=== PATIENT | female | born 1990 | race Caucasian/White ===

== ENCOUNTER → 2017-11-12 | Outpatient (CLI) | payer OTHER | END | disposition home or self-care (01) | LOC: C.LABSPEC 13:12 | PROVIDERS: ATTEND Obstetrics & Gynecology | DX: Z34.02 Encounter for supervision of normal first pregnancy, second trimester (principal); Z3A.00 Weeks of gestation of pregnancy not specified ==

== ENCOUNTER → 2017-11-15 | Outpatient (CLI) | payer OTHER ==
[2017-11-15 13:08] LABS: BASO % 0.1 %; BASO ABS # 0.01 K/uL (0-0.2); EOS % 1.7 %; EOS ABS # 0.14 K/uL (0-0.5); HEMATOCRIT 34.5 % (37-47); HEMOGLOBIN 11.8 g/dL (12.0-16.0); IG# 0.02 K/uL (0.00-0.02); LYMPH % 15.5 %; LYMPH ABS # 1.29 K/uL (1.2-3.4); MEAN CELL VOLUME 89.1 fL (80-100); MEAN CORPUSCULAR HEMOGLOBIN 30.5 pg (25-34); MEAN CORPUSCULAR HGB CONC 34.2 g/dl (32-36); MEAN PLATELET VOLUME 10.6 fL (7.4-10.4); MONO % 9.4 %; MONO ABS # 0.78 K/uL (0.11-0.59); NEUT % 73.1 %; NEUT ABS # 6.09 K/uL (1.4-6.5); PLATELET COUNT 212 K/uL (130-400); RED CELL DISTRIBUTION WIDTH CV 13.5 % (11.5-14.5); RED CELL DISTRIBUTION WIDTH SD 44.3 fL (36.4-46.3); WHITE BLOOD COUNT 8.33 K/uL (4.8-10.8)
== END | disposition home or self-care (01) ==
LOC: C.LAB1850 10:45
PROVIDERS: ATTEND Obstetrics & Gynecology
DX: Z34.02 Encounter for supervision of normal first pregnancy, second trimester (principal)

== ENCOUNTER → 2017-11-15 | Outpatient (CLI) | payer OTHER | END | disposition home or self-care (01) | LOC: C.PAPS 13:43 | PROVIDERS: ATTEND Obstetrics & Gynecology | DX: Z12.4 Encounter for screening for malignant neoplasm of cervix (principal) ==

== ENCOUNTER → 2018-01-25 | Outpatient (CLI) | payer OTHER ==
[2018-01-25 12:25] LABS: HEMATOCRIT 34.2 % (37-47); HEMOGLOBIN 11.7 g/dL (12.0-16.0)
== END | disposition home or self-care (01) ==
LOC: C.LAB1850 10:39
PROVIDERS: ATTEND Obstetrics & Gynecology
DX: Z34.03 Encounter for supervision of normal first pregnancy, third trimester (principal); Z3A.00 Weeks of gestation of pregnancy not specified

== ENCOUNTER → 2018-05-22 | Outpatient (CLI) | payer OTHER ==
[~2018-05-22] MED LIST: PRENTAB26 PO
[2018-05-22 17:16] LABS: BASO % 0.4 %; BASO ABS # 0.02 K/uL (0-0.2); EOS % 6.4 %; EOS ABS # 0.36 K/uL (0-0.5); HEMATOCRIT 41.9 % (37-47); HEMOGLOBIN 13.7 g/dL (12.0-16.0); LYMPH % 37.5 %; LYMPH ABS # 2.12 K/uL (1.2-3.4); MEAN CORPUSCULAR HEMOGLOBIN 29.1 pg (25-34); MEAN CORPUSCULAR HGB CONC 32.7 g/dl (32-36); MEAN PLATELET VOLUME 11.6 fL (7.4-10.4); MONO ABS # 0.62 K/uL (0.11-0.59); NEUT % 44.5 %; NEUT ABS # 2.53 K/uL (1.4-6.5); PLATELET COUNT 118 K/uL (130-400); RED CELL DISTRIBUTION WIDTH CV 13.6 % (11.5-14.5); RED CELL DISTRIBUTION WIDTH SD 44.8 fL (36.4-46.3); WHITE BLOOD COUNT 5.66 K/uL (4.8-10.8)
[2018-05-22 17:17] LABS: IG# 0.01 K/uL (0.00-0.02)
[2018-05-22 17:29] LABS: ALBUMIN 3.6 gm/dl (3.4-5.0); ALKALINE PHOSPHATASE 105 U/L (45-117); ALT/SGPT 35 U/L (12-78); AST/SGOT 24 U/L (15-37); BLOOD UREA NITROGEN 13 mg/dl (7-18); CALCIUM 8.7 mg/dl (8.5-10.1); CARBON DIOXIDE 26 mmol/L (21-32); CREATININE 0.87 mg/dl (0.60-1.20); GLUCOSE 90 mg/dl (70-99); LIPASE 177 U/L (73-393); POTASSIUM 3.9 mmol/L (3.5-5.1); SODIUM 139 mmol/L (136-145); TOTAL PROTEIN 6.9 gm/dl (6.4-8.2)
== END | disposition home or self-care (01) ==
LOC: C.LABPVFM 13:38
PROVIDERS: ATTEND Family Medicine
DX: R19.7 Diarrhea, unspecified (principal)

== ENCOUNTER → 2018-05-27 | Outpatient (CLI) | payer OTHER | END | disposition home or self-care (01) | LOC: C.LABPVFM 17:40 | PROVIDERS: ATTEND Family Medicine | DX: R19.7 Diarrhea, unspecified (principal) ==

== ENCOUNTER 2019-06-07 22:16 | Inpatient (IN) ==
[2019-06-08] MEDS ORDERED: OXYTOCIN 30 UNITS/500 ML BAG IV PRN (01:24)
[2019-06-08] MEDS ORDERED: LACTATED RINGER'S 1,000 ML IV PRN (01:24)
[2019-06-08 02:07] LABS: Hematocrit (blood only) 36.1 % (37-47); Hemoglobin 12.4 g/dL (12.0-16.0); Mean Corpuscular Hemoglobin 29.8 pg (25-34); Mean Corpuscular Volume 86.8 fL (80-100); Mean Platelet Volume 12.5 fL (7.4-10.4); Platelet Count 217 K/uL (130-400); RDW Coefficient of Variation 13.4 % (11.5-14.5); RDW Standard Deviation 42.3 fL (36.4-46.3); Red Blood Count 4.16 M/uL (4.2-5.4); White Blood Count 10.06 K/uL (4.8-10.8)
[2019-06-08 02:19] LABS: Mean Corpuscular Hgb Conc 34.3 g/dL (32-36)
--- NOTE | 2019-06-08 03:29 | Obstetrical Progress Note ---
Date of Service June 08, 2019 Subjective Observation Note 28 F P1001 at 40.3 weeks re-examined by me and found to be 4/50/-3/vertex/firm. FHT Cat 1. GBS is negative. Will ambulate and re-check for labor. Results & Data Vital Signs (Past 12 Hours) Vital Signs Temp Pulse Resp BP 06/07/19 22:44 37.3 C 18 06/07/19 22:21 83 116/68
== END 2019-06-08 04:30 | disposition home or self-care (01) | DRG 833 ==
LOC: OPB 22:16 → 4S1 22:18

== ENCOUNTER 2019-06-10 07:41 | Inpatient (IN) ==
[2019-06-10] MEDS ORDERED: OXYTOCIN 30 UNITS/500 ML BAG IV PRN ×3 (08:12→18:28)
--- NOTE | 2019-06-10 08:25 | History & Physical Report ---
Date of Service June 10, 2019 Assessment & Plan (1) Post-term , 40-42 weeks of gestation: 28 yo at 40.5 wks with prolonged latent phase, favorable cervix VS Afebrile FHR reassuring GBS negative Plan to admit, monitor, Oxytocin and AROM when able She agrees with plan All questions were answered History of Present Illness Chief Complaint: Induction of labor Primary Care Provider: Adelia Meng MD Patient is a 28 yo at 40.5 wks who is scheduled for IOL for prolonged latent labor She has been in to L&D and office x3 since last week with discomfort and irregular ctxs She was in office yesterday and her cervix was 4/ 70%/ -2, central She wanted to be scheduled for IOL today No regular ctxs/ LOF/ VB +FM No fever/ chills/ CP/ SOB/ MOSS/ Change in vision/ N&V Her has been uncomplicated GBS negative Allergies Allergy/AdvReac Type Severity Reaction Status Date / Time No Known Allergies Allergy Verified 06/07/19 22:27 Home Medications Home Medications Medication Instructions Recorded Confirmed Type PNV cmb#95-ferrous fumarate-FA 1 tab PO DAILY #0 tab 04/22/18 06/07/19 History [] Patient History Medical History History of toxoplasmosis with first - 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 Sinusitis with nasal polyps Spontaneous vaginal delivery 04/23/2018 [facility] Thrombocytopenia with first Social History Preferred Language: Finnish Communication Ability: Effective 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 Beliefs That Will Affect Care: None marital status: Current Living Situation: Spouse Current Living Situation Comment: house with and daughter Feels Safe at Home: Yes Smoking Status: Never smoker Hx Alcohol Use: No Hx Substance Use: No 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
[2019-06-10 08:28] LABS: Hematocrit (blood only) 36.5 % (37-47); Hemoglobin 12.6 g/dL (12.0-16.0); Mean Corpuscular Volume 87.3 fL (80-100); Mean Platelet Volume 11.1 fL (7.4-10.4); Platelet Count 172 K/uL (130-400); RDW Coefficient of Variation 13.4 % (11.5-14.5); Red Blood Count 4.18 M/uL (4.2-5.4); White Blood Count 9.36 K/uL (4.8-10.8)
[2019-06-10] MEDS: LACTATED RINGER'S 1,000 ML IV PRN ×2 (08:46→14:43)
[2019-06-10 08:50] LABS: Mean Corpuscular Hgb Conc 34.5 g/dL (32-36)
[2019-06-10] MEDS ORDERED: ONDANSETRON INJ 2 MG/ML 2 ML VIAL IV PRN ×2 (09:11→15:16)
[2019-06-10] MEDS ORDERED: BUTORPHANOL TARTRATE 1 MG/ML VIAL IV PRN (09:11)
--- NOTE | 2019-06-10 14:30 | Obstetrical Progress Note ---
Date of Service June 10, 2019 Subjective Patient is reevaluated She feels ctxs and getting more painful Denies pain meds VE; 5/ 80%/ -1, bulging tight bag, AROM'ed clear fluid FHR categ I [place] ctxs q 1-2 min Plan to half pitocin to 4 Continue to monitor Results & Data Vital Signs (Past 12 Hours) Vital Signs Temp Pulse Resp BP 06/10/19 14:16 64 111/64 06/10/19 13:20 72 106/58 L 06/10/19 11:26 66 97/53 L 06/10/19 09:45 65 99/55 L 06/10/19 07:51 36.6 C 20 06/10/19 07:50 78 109/60
[2019-06-10] MEDS ORDERED: fentaNYL citrate 100 MCG/2 ML VIAL ONE (14:48)
[2019-06-10] MEDS ORDERED: ePHEDrine sulfate 50 MG/ML AMP ONE (14:48)
[2019-06-10] MEDS ORDERED: BUPIVACAINE 0.25% 30 ML VIAL ONE (14:48)
[2019-06-10] MEDS ORDERED: fentaNYL 2MCG/ML ROPIV 1.25MG/ML 100 ML BAG EPI ONE (14:49)
--- NOTE | 2019-06-10 14:56 | Anesthesiology Consultation ---
Date of Service June 10, 2019 Assessment & Plan (1) Encounter for pre-operative examination: Chart Review Chart Review: Acceptable Risk for Labor Epidural History Height/Weight Height: 5 ft 4 in Weight: 97.522 kg Allergies Allergy/AdvReac Type Severity Reaction Status Date / Time No Known Allergies Allergy Verified 06/07/19 22:27 Medications Active Medications Generic Name Dose Route Start Last Admin Trade Name Freq PRN Reason Stop Dose Admin Lactated Ringer's 1,000 mls @ 150 mls/hr 06/10/19 08:12 06/10/19 14:43 Lr IV 06/12/19 08:11 999 mls/hr .[id number] PRN Administration L&D Protocol Protocol Oxytocin 30 units in 500 mls @ 4 mls/hr 06/10/19 08:14 06/10/19 14:17 Pitocin IV 06/12/19 08:13 0.24 units/hr .Q24H PRN 4 mls/hr Labor Induction/Augmentation Titration Protocol 0.24 UNITS/HR Past Medical History Medical History 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
[2019-06-10] MEDS ORDERED: NALOXONE HCL 1 MG in SODIUM CHLORIDE 0.9% 1000ML 1,000 ML IV PRN (15:16)
[2019-06-10] MEDS ORDERED: NALOXONE HCL 0.4 MG/1 ML VIAL/CARP IV PRN (15:16)
[2019-06-10] MEDS ORDERED: fentaNYL 2MCG/ML ROPIV 1.25MG/ML 100 ML BAG EPI PRN (15:16)
[2019-06-10] MEDS ORDERED: ePHEDrine sulfate 50 MG/ML AMP IV PRN (15:16)
[2019-06-10] MEDS ORDERED: DIPHTHERIA/TETANUS/PERTUSSIS 0.5 ML SYR/VIAL IM ONE (18:28)
[2019-06-10] MEDS ORDERED: HYDROCORTISONE ACETATE 25 MG SUPP PR PRN (18:28)
[2019-06-10] MEDS ORDERED: BENZOCAINE 20% AER SPR 82.5 GM CAN EXT PRN (18:28)
[2019-06-10] MEDS ORDERED: SUPERCREAM 0.870% 15 GM JAR EXT PRN (18:28)
[2019-06-10] MEDS ORDERED: MEASLES, MUMPS & RUBELLA VIRUS VIAL SQ ONE (18:28)
[2019-06-10] MEDS ORDERED: BISACODYL 10 MG SUPP PR PRN (18:28)
[2019-06-10] MEDS ORDERED: ACETAMINOPHEN 325 MG TAB PO PRN (18:28)
--- NOTE | 2019-06-10 20:27 | Delivery Summary ---
DATE OF OPERATION: 06/10/2019 DATE OF DELIVERY: 06/10/2019 TIME OF DELIVERY OF BABY: 18:14 p.m. DETAILS OF DELIVERY: The patient was found to be fully dilated and desired to push. She pushed through 3 contractions and delivered the head and then turtle sign was noted over the perineum. Nurses were noted of shoulder dystocia. The patient's bed was lowered down with the Eduardo maneuver, hyperextension of the legs and suprapubic pressure, unable to deliver the anterior shoulder. There was a nuchal cord around the neck x2 and then posterior shoulder/arm, left, was easily reachable by my right hand. The posterior left arm and shoulder were delivered and then anterior shoulder and the body delivered without difficulty within less than a minute. The nuchal cord was reduced and cord was clamped x2 and cut. The baby was handed to the waiting pediatric team. Cord blood was obtained. The perineum were checked for lacerations. There was a first degree small laceration at the posterior fourchette. It was repaired with 2-0 Vicryl. Excellent hemostasis was achieved. Rest of the vagina and perineum were intact. Placenta was found to be delivered in the vagina, delivered spontaneous as intact and complete. Uterus was explored, found to be empty. Fundus was firm. EBL was 200 mL. Mom and baby tolerated the procedure well. Sponge, lap and needle counts were counted as correct x2. Baby was a viable male , Apgars 8/9, weight is 3983 gr. No complications happened and I was present during whole procedure. I attest to the content of the Intraoperative Record and any orders documented therein. Any exceptions are noted below. MTDD
--- NOTE | 2019-06-10 20:30 | Anesthesia Procedure Note ---
Date of Service June 10, 2019 Anesthesia Post Epidural Note Vital Signs Vital Signs: Temp Pulse Resp BP Pulse Ox 37.1 C 69 18 94/57 L 99 06/10/19 19:28 06/10/19 20:28 06/10/19 19:28 06/10/19 20:28 06/10/19 18:18 Notes Mental Status: alert / awake / arousable and participated in evaluation Nausea / Vomiting: adequately controlled Pain: adequately controlled Airway Patency, RR, SpO2: stable & adequate BP & HR: stable & adequate Hydration State: stable & adequate Neuraxial Anesthesia: was administered and sensory block is resolving Anesthetic Complications: no major complications apparent Epidural: Removed without complications and With tip intact
[2019-06-10] MEDS: IBUPROFEN 600 MG TAB PO PRN (21:22)
[2019-06-10] MEDS: DOCUSATE SODIUM 100 MG CAP PO SCH (21:22)
[2019-06-11] MEDS: IBUPROFEN 600 MG TAB PO PRN ×3 (02:41→12:10)
[2019-06-11 06:35] LABS: Hematocrit (blood only) 33.7 % (37-47); Hemoglobin 11.2 g/dL (12.0-16.0); Mean Corpuscular Hgb Conc 33.2 g/dL (32-36); Mean Corpuscular Volume 87.5 fL (80-100); Mean Platelet Volume 11.5 fL (7.4-10.4); Platelet Count 159 K/uL (130-400); RDW Coefficient of Variation 13.5 % (11.5-14.5); RDW Standard Deviation 43.4 fL (36.4-46.3); Red Blood Count 3.85 M/uL (4.2-5.4); White Blood Count 13.21 K/uL (4.8-10.8)
--- NOTE | 2019-06-11 08:44 | Obstetrical Progress Note ---
Date of Service June 11, 2019 Physical Exam Physical Exam: abdomen soft and non tender no calf tenderness vaginal bleeding scant o moderate hgb 11.2 ambulating well Results & Data Vital Signs (Past 12 Hours) Vital Signs Temp Pulse Resp BP 06/11/19 02:30 36.7 C 71 18 104/65 06/10/19 22:50 36.7 C 71 18 110/69 06/10/19 21:10 36.7 C 76 18 107/67
[2019-06-11] MEDS: FERROUS SULFATE 325 MG TAB PO SCH (09:38)
[2019-06-11] MEDS: PRENATAL VITAMIN 1 TAB PO SCH (09:38)
[2019-06-11] MEDS: DOCUSATE SODIUM 100 MG CAP PO SCH ×2 (09:38→20:58)
[2019-06-11] MEDS ORDERED: BISACODYL 5 MG TABEC PO SCH (20:00)
[2019-06-12 07:19] LABS: Hematocrit (blood only) 34.9 % (37-47); Hemoglobin 11.6 g/dL (12.0-16.0)
--- NOTE | 2019-06-12 10:19 | Obstetrical Progress Note ---
Date of Service June 12, 2019 Subjective doing well ambulating and tolerating diet well Physical Exam Constitutional: WD/WN, vitals as above comfortable abdomen soft fundus firm no edema neg Jimmy's Results & Data Vital Signs (Past 12 Hours) Vital Signs Temp Pulse Resp BP Pulse Ox 06/12/19 00:15 37.4 C 65 16 107/67 96
[2019-06-12] MEDS: PRENATAL VITAMIN 1 TAB PO SCH (10:50)
[2019-06-12] MEDS: FERROUS SULFATE 325 MG TAB PO SCH (10:50)
[2019-06-12] MEDS: DOCUSATE SODIUM 100 MG CAP PO SCH (13:43)
== END 2019-06-12 20:00 | disposition home or self-care (01) | DRG 807 ==
LOC: 4S1 07:41 → 4S2 20:57

== ENCOUNTER 2020-11-28 18:30 | Inpatient (IN) ==
[2020-11-28] MEDS ORDERED: LACTATED RINGER'S 1,000 ML IV PRN (19:24)
[2020-11-28] MEDS ORDERED: OXYTOCIN 30 UNITS/500 ML BAG IV PRN ×2 (19:24→22:21)
[2020-11-28 19:41] LABS: Hematocrit (blood only) 37.9 % (37-47); Hemoglobin 12.9 g/dL (12.0-16.0); Mean Corpuscular Hemoglobin 30.1 pg (25-34); Mean Corpuscular Volume 88.3 fL (80-100); Mean Platelet Volume 11.5 fL (7.4-10.4); Platelet Count 187 K/uL (130-400); RDW Coefficient of Variation 13.5 % (11.5-14.5); RDW Standard Deviation 43.9 fL (36.4-46.3); Red Blood Count 4.29 M/uL (4.2-5.4); White Blood Count 13.32 K/uL (4.8-10.8)
--- NOTE | 2020-11-28 20:32 | Obstetrical Progress Note ---
Date of Service November 28, 2020 Assessment & Plan Admission and Anticipated Discharge Date Admission Date: November 28, 2020 Subjective Admit Note 29 F P2012 at 38.1 weeks admitted in labor. FHT Cat 1. GBS is negative. Covid is negative. Cervix 6/100/0/anterior/intact. AROM with clear fluid. FHT Cat 1. Anticipate normal delivery. Results & Data ([facility]) Vital Signs (Past 12 Hours) Vital Signs Temp Pulse Resp BP 11/28/20 18:58 36.7 C 18 11/28/20 18:53 36.7 C 18 11/28/20 18:41 97 H 110/67
--- NOTE | 2020-11-28 22:20 | Delivery Summary ---
Vaginal Delivery Summary Date of Service November 28, 2020 Vaginal Delivery Summary Delivery Note live female JESUS over intact perineum with delayed cord clamping. Apgars 8/9 weight pending. Cord blood obtained followed by spontaneous delivery of intact placenta. No tears. EBL 200 ml. Final sponge and instrument count are correct. Mom and baby stable.
[2020-11-28] MEDS ORDERED: bisacodyL 10 MG SUPP PR PRN (22:21)
[2020-11-28] MEDS ORDERED: HYDROCORTISONE ACETATE 25 MG SUPP PR PRN (22:21)
[2020-11-28] MEDS ORDERED: DIPHTHERIA/TETANUS/PERTUSSIS 0.5 ML SYR/VIAL IM ONE (22:21)
[2020-11-28] MEDS ORDERED: SUPERCREAM 0.870% 15 GM JAR EXT PRN (22:21)
[2020-11-28] MEDS ORDERED: BENZOCAINE 20% AER SPR 82.5 GM CAN EXT PRN (22:21)
[2020-11-28] MEDS ORDERED: ACETAMINOPHEN 325 MG TAB PO PRN (22:21)
[2020-11-29] MEDS: IBUPROFEN 600 MG TAB PO PRN ×3 (01:55→16:33)
[2020-11-29 06:25] LABS: Hematocrit (blood only) 34.1 % (37-47); Hemoglobin 11.4 g/dL (12.0-16.0); Mean Corpuscular Hemoglobin 29.5 pg (25-34); Mean Corpuscular Hgb Conc 33.4 g/dL (32-36); Mean Corpuscular Volume 88.3 fL (80-100); Mean Platelet Volume 11.3 fL (7.4-10.4); Platelet Count 173 K/uL (130-400); RDW Coefficient of Variation 13.6 % (11.5-14.5); RDW Standard Deviation 43.7 fL (36.4-46.3); Red Blood Count 3.86 M/uL (4.2-5.4); White Blood Count 16.52 K/uL (4.8-10.8)
[2020-11-29] MEDS: PRENATAL VITAMIN 1 TAB PO SCH (08:13)
[2020-11-29] MEDS: DOCUSATE SODIUM 100 MG CAP PO SCH ×2 (08:13→21:03)
[2020-11-29] MEDS: FERROUS SULFATE 325 MG TAB PO SCH (08:13)
[2020-11-29] MEDS ORDERED: NON-FORMULARY MEDICATION (Pnv Cmb#95-Ferrous Fumarate-Fa [Prenatal] 28 mg iron- 800 mcg Ta PO SCH (09:00)
--- NOTE | 2020-11-29 10:10 | Obstetrical Progress Note ---
Date of Service November 29, 2020 Assessment & Plan Admission and Anticipated Discharge Date Admission Date: November 28, 2020 Subjective Patient is seen and examined. She feels well, no complaints. Ambulating without dizziness Voiding without difficulty Tolerating regular diet with out N&V Bleeding is minimal No fever/ chills/ CP/ SOB/ N&V/ Leg pain Breast feeding without problems Lab Results 11/28/20 11/28/20 11/28/20 Range/Units 19:25 19:25 19:32 WBC 13.32 H (4.8-10.8) K/uL RBC 4.29 (4.2-5.4) M/uL Hgb 12.9 (12.0-16.0) g/dL Hct 37.9 (37-47) % MCV 88.3 (80-100) fL MCH 30.1 (25-34) pg MCHC 34.0 (32-36) g/dL RDW Std Deviation 43.9 (36.4-46.3) fL RDW Coeff of Fiorella 13.5 (11.5-14.5) % Plt Count 187 (130-400) K/uL MPV 11.5 H (7.4-10.4) fL COVID-19 Eval Order Covid19 IDNow [facility] SARS-CoV-2, RNA, NAAT NEGATIVE (NEGATIVE) 11/29/20 Range/Units 06:07 WBC 16.52 H (4.8-10.8) K/uL RBC 3.86 L (4.2-5.4) M/uL Hgb 11.4 L (12.0-16.0) g/dL Hct 34.1 L (37-47) % MCV 88.3 (80-100) fL MCH 29.5 (25-34) pg MCHC 33.4 (32-36) g/dL RDW Std Deviation 43.7 (36.4-46.3) fL RDW Coeff of Fiorella 13.6 (11.5-14.5) % Plt Count 173 (130-400) K/uL MPV 11.3 H (7.4-10.4) fL COVID-19 Eval Order SARS-CoV-2, RNA, NAAT (NEGATIVE) Vital Signs Temp Pulse Pulse Resp BP BP Pulse Ox 11/29/20 07:55 36.5 C 80 16 100/64 98 11/29/20 03:45 36.6 C 86 18 106/68 98 11/29/20 00:10 36.5 C 89 18 103/65 97 11/28/20 23:34 36.8 C 89 18 110/56 L 11/28/20 23:26 88 110/59 L 11/28/20 23:12 83 16 121/58 L 11/28/20 23:11 169 H 112/66 11/28/20 22:56 83 18 110/58 L 11/28/20 22:41 90 18 111/52 L 11/28/20 22:31 91 H 16 124/56 L 11/28/20 22:11 36.7 C 83 18 115/58 L PE: General: Alert, orientedx3, NAD Abd: soft, NT, fundus firm, below Umbilicus Perineum intact, Lochia rubra minimal Ext; NT, no edema AP: 29 yo s/p , ppd# 1 VSS Afebrile doing well CBC in am Continue routine care All questions were answered D/C home in am Results & Data ([facility]) Vital Signs (Past 12 Hours) Vital Signs Temp Pulse Pulse Resp BP BP Pulse Ox 11/29/20 07:55 36.5 C 80 16 100/64 98 11/29/20 03:45 36.6 C 86 18 106/68 98 11/29/20 00:10 36.5 C 89 18 103/65 97 11/28/20 23:34 36.8 C 89 18 110/56 L 11/28/20 23:26 88 110/59 L 11/28/20 23:12 83 16 121/58 L 11/28/20 23:11 169 H 112/66 11/28/20 22:56 83 18 110/58 L 11/28/20 22:41 90 18 111/52 L 11/28/20 22:31 91 H 16 124/56 L 11/28/20 22:11 36.7 C 83 18 115/58 L
[2020-11-29] MEDS ORDERED: bisacodyL 5 MG TABEC PO SCH (20:00)
[2020-11-30] MEDS: IBUPROFEN 600 MG TAB PO PRN ×2 (03:26→09:33)
[2020-11-30 06:30] LABS: Basophils # (auto) 0.02 K/uL (0-0.2); Basophils % (auto) 0.2 %; Eosinophils # (auto) 0.45 K/uL (0-0.5); Eosinophils % (auto) 3.8 %; Hemoglobin 11.6 g/dL (12.0-16.0); Immature Granulocytes # (auto) 0.11 K/uL (0.00-0.02); Immature Granulocytes % (auto) 0.9 %; Lymphocytes # (auto) 2.97 K/uL (1.2-3.4); Lymphocytes % (auto) 25.1 %; Mean Corpuscular Hemoglobin 29.7 pg (25-34); Mean Corpuscular Hgb Conc 33.1 g/dL (32-36); Mean Corpuscular Volume 89.5 fL (80-100); Mean Platelet Volume 11.1 fL (7.4-10.4); Monocytes # (auto) 1.02 K/uL (0.11-0.59); Monocytes % (auto) 8.6 %; Neutrophils # (auto) 7.27 K/uL (1.4-6.5); Neutrophils % (auto) 61.4 %; Platelet Count 180 K/uL (130-400); RDW Coefficient of Variation 13.8 % (11.5-14.5); RDW Standard Deviation 44.9 fL (36.4-46.3); Red Blood Count 3.91 M/uL (4.2-5.4); White Blood Count 11.84 K/uL (4.8-10.8)
--- NOTE | 2020-11-30 07:44 | Obstetrical Progress Note ---
Date of Service November 30, 2020 Assessment & Plan Admission and Anticipated Discharge Date Admission Date: November 28, 2020 Physical Exam Physical Exam: PPD#2 stable no complaints tolerating diet out of bed passing gas Constitutional: WD/WN, vitals as above well developed and comfortable abdomen soft and non-tender fundus firm no edema neg Jimmy's for d/c today Results & Data ([facility]) Vital Signs (Past 12 Hours) Vital Signs Temp Pulse Resp BP Pulse Ox 11/29/20 23:25 36.6 C 91 H 17 112/73 97 11/29/20 20:50 36.4 C L 86 18 114/75 Laboratory Results 11/28/20 11/28/20 11/28/20 19:25 19:25 19:32 WBC 13.32 H RBC 4.29 Hgb 12.9 Hct 37.9 MCV 88.3 MCH 30.1 MCHC 34.0 RDW Std Deviation 43.9 RDW Coeff of Fiorella 13.5 Plt Count 187 MPV 11.5 H Immature Gran % (Auto) Neut % (Auto) Lymph % (Auto) [place] % (Auto) Eos % (Auto) Baso % (Auto) Neut # (Auto) Lymph # (Auto) [place] # (Auto) Eos # (Auto) Baso # (Auto) Immature Gran # (Auto) COVID-19 Eval Order Covid19 [facility]Now [facility] SARS-CoV-2, RNA, NAAT NEGATIVE 11/29/20 11/30/20 06:07 06:03 WBC 16.52 H 11.84 H RBC 3.86 L 3.91 L Hgb 11.4 L 11.6 L Hct 34.1 L 35.0 L MCV 88.3 89.5 MCH 29.5 29.7 MCHC 33.4 33.1 RDW Std Deviation 43.7 44.9 RDW Coeff of Fiorella 13.6 13.8 Plt Count 173 180 MPV 11.3 H 11.1 H Immature Gran % (Auto) 0.9 Neut % (Auto) 61.4 Lymph % (Auto) 25.1 [place] % (Auto) 8.6 Eos % (Auto) 3.8 Baso % (Auto) 0.2 Neut # (Auto) 7.27 H Lymph # (Auto) 2.97 [place] # (Auto) 1.02 H Eos # (Auto) 0.45 Baso # (Auto) 0.02 Immature Gran # (Auto) 0.11 H COVID-19 Eval Order SARS-CoV-2, RNA, NAAT
[2020-11-30] MEDS: DOCUSATE SODIUM 100 MG CAP PO SCH (09:33)
[2020-11-30] MEDS: FERROUS SULFATE 325 MG TAB PO SCH (09:33)
[2020-11-30] MEDS: PRENATAL VITAMIN 1 TAB PO SCH (09:33)
== END 2020-11-30 11:50 | disposition home or self-care (01) | DRG 807 ==
LOC: OPB 18:30 → 4S1 18:33 → 4S2 23:55

== ENCOUNTER 2022-09-08 19:21 | Inpatient (IN) ==
[2022-09-08] MEDS ORDERED: LACTATED RINGER'S 1,000 ML IV PRN (20:04)
[2022-09-08] MEDS ORDERED: OXYTOCIN 30 UNITS/500 ML BAG IV PRN ×2 (20:04→23:33)
[2022-09-08] MEDS ORDERED: LIDOCAINE 1% LOCAL 20 ML VIAL INFIL PRN (20:04)
--- NOTE | 2022-09-08 20:23 | History & Physical Report ---
Date of Service September 08, 2022 Assessment & Plan (1) Active labor at term: Plan: 31-year-old -0-1-3 at 40 weeks of gestation presenting today in active labor, Vital signs stable afebrile, heart rate category 1, GBS negative, Plan to admit, monitor, labs, epidural when patient requests, AROM, Anticipate , All questions were answered. (2) History of shoulder dystocia: (3) Obesity affecting in third trimester, antepartum: Admission and Anticipated Discharge Date Admission Date: September 08, 2022 History of Present Illness Chief Complaint: Contractions and spotting Primary Care Provider: Adelia Meng MD Patient is a 31-year-old -0-1-3 at 40 weeks of gestation who has been feeling contractions and light spotting since this morning, at around 5:30 AM. They have been every 10 minutes during the day and they got more regular and painful after 3:30 PM. She denies leakage of fluid or active vaginal bleeding. She reports good movements. Her has been complicated by , 1. Obesity during , [facility] ultrasound at August 17 was normal with estimated weight of 51 percentile, 6 pound 12 ounce, 2. History of shoulder dystocia during second , mild, 3. Close interval, 4. History of superficial vein thrombosis in 2020 after last delivery, use Lovenox for 2 weeks and stopped, GBS Is negative Her cervix was checked by her nurse and it was 6 cm, vertex presentation. 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 Miscarriage Sinusitis with nasal polyps Spontaneous vaginal delivery 04/23/2018 [facility] Thrombocytopenia with first Varicosities of leg Right leg Surgical History H/O sinus surgery No pertinent past surgical history Family History Other No pertinent family history Social History Smoking Status: Never smoker Hx Alcohol Use: No Hx Substance Use: No Preferred Language: Estonian Communication Ability: Effective Tie Cutter Required: No Beliefs That Will Affect Care: None marital status: Current Living Situation: Spouse Current Living Situation Comment: house with and daughter Other Information That Helps Us Care for You: No Feels Safe at Home: Yes Safety Concerns: Feels Safe At This Time 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
[2022-09-08 20:27] LABS: Hemoglobin 13.6 g/dl (12.0-16.0); Mean Corpuscular Hemoglobin 31.3 pg (25.0-34.0); Mean Platelet Volume 10.9 fL (9.4-12.3); Platelet Count 168 K/uL (130-400); RDW Coefficient of Variation 12.5 % (11.5-14.5); Red Blood Count 4.35 M/uL (3.93-5.22); White Blood Count 12.12 K/ul (4.8-10.8)
--- NOTE | 2022-09-08 22:03 | Obstetrical Progress Note ---
Date of Service September 08, 2022 Assessment & Plan Admission and Anticipated Discharge Date Admission Date: September 08, 2022 Subjective Patient is reevaluated. She still looks comfortable, does not anything for pain. heart rate category 1, contractions every 2 to 5 minutes. Vaginal exam, cervix is 6 cm, 90% effaced, head at -1 station, large bulging bag, AROM, clear fluid was obtained, Continue to monitor closely, Anticipate . Results & Data ([facility]) Vital Signs (Past 12 Hours) Vital Signs Temp Pulse Resp BP 09/08/22 21:58 18 09/08/22 21:58 36.8 C 18 09/08/22 19:31 96 H 113/71 09/08/22 19:30 37.1 C 18
--- NOTE | 2022-09-08 22:48 | Obstetrical Progress Note ---
Date of Service September 08, 2022 Assessment & Plan Admission and Anticipated Discharge Date Admission Date: September 08, 2022 Subjective Patient feels pressure VE; 7-8/ 90%/ 0 FHR categ I Continue to monitor closely. Results & Data ([facility]) Vital Signs (Past 12 Hours) Vital Signs Temp Pulse Resp BP 09/08/22 21:58 18 09/08/22 21:58 36.8 C 18 09/08/22 19:31 96 H 113/71 09/08/22 19:30 37.1 C 18
[2022-09-08] MEDS ORDERED: LACTATED RINGER'S 1,000 ML IV SCH (23:14)
[2022-09-08] MEDS ORDERED: oxyCODONE/ACETAMINOPHEN 5mg/325mg TAB PO PRN (23:33)
[2022-09-08] MEDS ORDERED: MEASLES, MUMPS & RUBELLA VIRUS VIAL SQ ONE (23:33)
[2022-09-08] MEDS ORDERED: HYDROCORTISONE ACETATE 25 MG SUPP PR PRN (23:33)
[2022-09-08] MEDS ORDERED: METHYLERGONOVINE MALEATE 0.2 MG/ML AMP IM ONE (23:33)
[2022-09-08] MEDS ORDERED: ACETAMINOPHEN 325 MG TAB PO PRN (23:33)
[2022-09-08] MEDS ORDERED: bisacodyL 10 MG SUPP PR PRN (23:33)
[2022-09-08] MEDS ORDERED: DIPHTHERIA/TETANUS/PERTUSSIS 0.5 ML SYR/VIAL IM ONE (23:33)
[2022-09-08] MEDS ORDERED: BENZOCAINE 20% AER SPR 82.5 GM CAN EXT PRN (23:33)
--- NOTE | 2022-09-08 23:37 | Delivery Summary ---
Vaginal Delivery Summary Date of Service September 08, 2022 Vaginal Delivery Summary Patient was found to be fluid dilated and desired to push. She pushed through 2 contractions and delivered to head without difficulty. The shoulders were delivered with minimal traction. The baby was handed off to the mother, where mouth and nose were suctioned, the cord was clamped times and cut at 1 minute delay. The baby was moving and crying at that point. Then the vagina and perineum were checked for lacerations. There were intact and no lacerations were found. The placenta was found to be in the vagina, delivered spontaneously as intact and complete. The uterus was explored and found to be empty, the lower segment was cleared of all clots and debris's, fundus was firm and EBL was 200 mL. The mom and baby tolerated procedure well. There was a viable female infant, Apgars 8/9 and weight is pending. No complications happened and I was present during whole procedure. At the end of the procedure the sponge and instrument count was correct x2.
[2022-09-09] MEDS: METHYLERGONOVINE MALEATE 0.2 MG TAB PO SCH ×2 (02:23→06:21)
[2022-09-09] MEDS: IBUPROFEN 600 MG TAB PO PRN ×4 (02:23→20:59)
[2022-09-09] MEDS ORDERED: METHYLERGONOVINE MALEATE 0.2 MG/ML AMP IM ONE (03:45)
[2022-09-09 06:36] LABS: Hemoglobin 13.3 g/dl (12.0-16.0); Mean Corpuscular Hemoglobin 31.4 pg (25.0-34.0); Mean Corpuscular Volume 89.6 fL (80.0-100.0); Mean Platelet Volume 11.1 fL (9.4-12.3); Platelet Count 151 K/uL (130-400); RDW Coefficient of Variation 12.5 % (11.5-14.5); RDW Standard Deviation 41.3 fL (36.4-46.3); Red Blood Count 4.24 M/uL (3.93-5.22); White Blood Count 16.85 K/ul (4.8-10.8)
[2022-09-09] MEDS: PRENATAL VITAMIN 1 TAB PO SCH (08:24)
[2022-09-09] MEDS: FERROUS SULFATE 325 MG TAB PO SCH (08:24)
[2022-09-09] MEDS: DOCUSATE SODIUM 100 MG CAP PO SCH ×2 (08:24→20:59)
[2022-09-09] MEDS ORDERED: SODIUM CHLORIDE 0.65% NA SOLN 45 ML (OCEAN) ONE (08:40)
--- NOTE | 2022-09-09 08:52 | Obstetrical Progress Note ---
Date of Service September 09, 2022 Assessment & Plan (1) Normal course: Continue routine PP care Plan to d/c tomorrow if doing well Subjective Ambulation: ambulating normally Voiding: no voiding problems Passing Gas:: Yes Diet Tolerance:: regular diet Lochia:: Moderate Feeding Type:: breast feeding Current Pain Level(1-10): 2 Doing well, no complaints Plan home tomorrow Physical Exam Constitutional WD/WN, vitals as above Neck trachea midline, no thyromegaly Respiratory normal respiratory effort, lungs clear to auscultation Cardiovascular RRR, no murmur, no edema Gastrointestinal (Abdomen) normal bowel sounds, soft, nontender, no hepatosplenomegaly Results & Data ([facility]) Vital Signs (Past 12 Hours) Vital Signs Temp Pulse Pulse Resp BP BP Pulse Ox 09/09/22 02:12 36.8 C 88 18 114/70 97 09/09/22 01:35 18 09/09/22 01:05 18 09/09/22 00:35 18 09/09/22 00:20 18 09/09/22 00:05 18 09/08/22 23:50 18 09/08/22 23:35 37.0 C 18 09/09/22 01:51 95 H 107/55 L 09/09/22 01:37 88 102/58 L 09/09/22 01:22 83 98/55 L 09/09/22 01:07 84 109/58 L 09/09/22 00:51 86 114/58 L 09/09/22 00:37 82 114/62 09/09/22 00:22 82 106/56 L 09/09/22 00:07 82 107/59 L 09/08/22 23:52 83 09/08/22 23:52 106/53 L 09/08/22 23:37 90 09/08/22 23:37 100/56 L 09/08/22 23:29 96 09/08/22 23:30 94 09/08/22 23:29 90 09/08/22 23:30 89 09/08/22 23:24 97 09/08/22 23:24 91 H 09/08/22 23:20 90 09/08/22 23:20 88 09/08/22 23:19 100 09/08/22 23:19 91 H 09/08/22 23:04 100 H 09/08/22 23:04 121/56 L 09/08/22 21:58 18 09/08/22 21:58 36.8 C 18 O2 Del Method 09/09/22 02:12 Room Air 09/09/22 01:35 09/09/22 01:05 09/09/22 00:35 09/09/22 00:20 09/09/22 00:05 09/08/22 23:50 09/08/22 23:35 09/09/22 01:51 09/09/22 01:37 09/09/22 01:22 09/09/22 01:07 09/09/22 00:51 09/09/22 00:37 09/09/22 00:22 09/09/22 00:07 09/08/22 23:52 09/08/22 23:52 09/08/22 23:37 09/08/22 23:37 09/08/22 23:29 09/08/22 23:30 09/08/22 23:29 09/08/22 23:30 09/08/22 23:24 09/08/22 23:24 09/08/22 23:20 09/08/22 23:20 09/08/22 23:19 09/08/22 23:19 09/08/22 23:04 09/08/22 23:04 09/08/22 21:58 09/08/22 21:58 Laboratory Results H/H 13.3/38%
[2022-09-09] MEDS ORDERED: bisacodyL 5 MG TABEC PO SCH (20:00)
[2022-09-10 07:45] LABS: Hematocrit (blood only) 37.2 % (34.1-44.9); Hemoglobin 12.5 g/dl (12.0-16.0)
[2022-09-10] MEDS: PRENATAL VITAMIN 1 TAB PO SCH (07:48)
[2022-09-10] MEDS: IBUPROFEN 600 MG TAB PO PRN (07:48)
[2022-09-10] MEDS: FERROUS SULFATE 325 MG TAB PO SCH (07:48)
[2022-09-10] MEDS: DOCUSATE SODIUM 100 MG CAP PO SCH (08:00)
[2022-09-10] MEDS ORDERED: ENOXAPARIN INJ 30 MG/0.3 ML SYR SQ SCH (09:15)
--- NOTE | 2022-09-10 09:24 | Obstetrical Progress Note ---
Date of Service September 10, 2022 Assessment & Plan (1) Normal course: Continiue PP care (2) Superficial thrombophlebitis: History in last in left LE Will get doppler of right LE to rule out DVT Start Lovenox 40 mg sq daily for high risk of DVT (hx clot, ) Patient voiced understanding and agreement with plan of care Subjective Ambulation: ambulating normally Voiding: no voiding problems Passing Gas:: Yes Diet Tolerance:: regular diet Lochia:: Small Feeding Type:: breast feeding Current Pain Level(1-10): 3 Doing well, increasing pain and discomfort behind right knee at site of varicose vein. Has history of superficial blood clot 2 weeks last . Was on lovenox for 2 weeks. Unsure if she needs to be on it at this time Pain better after walking. Denies SOB, chest pain, dizziness. Otherwise doing well Physical Exam Constitutional WD/WN, vitals as above Neck trachea midline, no thyromegaly Respiratory normal respiratory effort, lungs clear to auscultation Cardiovascular RRR, no murmur, no edema Gastrointestinal (Abdomen) normal bowel sounds, soft, nontender, no hepatosplenomegaly Skin tender to palpation in right popiteal area of varicose vein, no pitting edema, no erythemia, +pedal pulses Results & Data ([facility]) Vital Signs (Past 12 Hours) Vital Signs Temp Pulse Resp BP Pulse Ox O2 Del Method 09/09/22 23:02 36.4 C L 82 18 105/69 96 Room Air Laboratory Results H/H 12.5/37.2%
[2022-09-10] MEDS ORDERED: ENOXAPARIN INJ 40 MG/0.4 ML SYR SQ SCH (09:30)
--- NOTE | 2022-09-10 09:49 | Ultrasound Report ---
ULTRASOUND RIGHT LOWER EXTREMITY VENOUS CLINICAL HISTORY: Right leg pain. COMPARISON STUDY: No priors. TECHNIQUE: Real-time, grayscale, and color Doppler sonography of the deep veins of the right lower ex tremity was performed from the inguinal crease to the calf. Compression and augmentation were utilize d. FINDINGS: There is no sonographic evidence of deep venous thrombosis identified in the right lower ex tremity. The common femoral, superficial femoral, and popliteal veins are patent and normally gearld sible. The greater saphenous vein and the profunda femoris vein at the junction with the common femor al vein are clear. The visualized calf veins are patent. There are thrombosed superficial venous vari cosities in the right popliteal region. This measures up to 3.5 cm in maximum length. IMPRESSION: 1. There is no sonographic evidence of deep venous thrombosis identified in the right lower extremity . 2. Thrombosed superficial venous varicosities are noted in the popliteal region. ACT 112: Negative or not required by law. Electronically signed by: En Catalan M.D. 09/10/2022 9:48 AM
== END 2022-09-10 14:45 | disposition home or self-care (01) | DRG 807 ==
LOC: OPB 19:21 → 4S1 19:26 → 4E2 09-09 02:39
DX: Z3A.40 40 weeks gestation of pregnancy; Z86.718 Personal history of other venous thrombosis and embolism; Z37.0 Single live birth; O99.214 Obesity complicating childbirth; O22.23 Superficial thrombophlebitis in pregnancy, third trimester; I80.01 Phlebitis and thrombophlebitis of superficial vessels of right lower extremity

== ENCOUNTER 2025-06-24 10:45 | Inpatient (IN) ==
[2025-06-24] MEDS ORDERED: OXYTOCIN 30 UNITS/NSS 30 UNITS/500 ML BAG IV PRN ×2 (11:09→22:35)
[2025-06-24] MEDS ORDERED: LIDOCAINE 1% LOCAL 20 ML VIAL INFIL PRN (11:09)
--- NOTE | 2025-06-24 11:17 | History & Physical Report ---
Date of Service June 24, 2025 Assessment & Plan (1) Active labor at term: Plan: 34 yo 41w4d wks with Contractions, active labor at term, Vital signs stable afebrile, heart rate reassuring, Plan to admit, monitor, labs, Patient desires expectant management for now, declines pain medications, All questions were answered. History of Present Illness Primary Care Provider: Adelia Meng MD 34 yo 41w4d wks with Contractions started last night and then calm down. They started to become regular around 7:30 AM and then she had bloody s how around 8:30 AM. She called office and recommended to come in for labor. Her cervix was 4 cm dilated yesterday in the office and she was scheduled for induction of labor for tomorrow. She denies leakage of fluid or vaginal bleeding. She reports good movements. denies medical problems, GBS negative. * she has history of shoulder dystocia relieved with maneuvers without complication in 2018, rest of her deliveries were uneventful she had twins with vaginal delivery 2023. she desires unmedicated delivery, declines epidural for now. 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 Spontaneous vaginal delivery 04/23/2018 [facility] Sinusitis with nasal polyps Surgical History H/O sinus surgery No pertinent past surgical history Family History Other No pertinent family history Social History Smoking Status: Never smoker Hx Alcohol Use: No Hx Substance Use: No Preferred Language: Persian Communication Ability: Effective 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: No Beliefs That Will Affect Care: None marital status: Current Living Situation: Spouse Current Living Situation Comment: house with and daughter Feels Safe at Home: Yes Assistive Devices: None Review of Systems as per Subjective / HPI Physical Exam Constitutional: WD/WN, vitals as above well developed, well nourished and comfortable Genitourinary: OB Exam Abdomen: + vertex Manual OB Exam: + cervical dilation 5 cm, + cervical effacement (90) and + station -1 OB Exam Monitor Tracing: + external uterine monitor used and + category I Results & Data Vital Signs (Past 12 Hours) Vital Signs Pulse BP 06/24/25 11:05 81 113/70
[2025-06-24 12:20] LABS: Hematocrit (blood only) 40.4 % (37.0-47.0); Hemoglobin 13.7 g/dl (12.0-16.0); Mean Corpuscular Hemoglobin 29.7 pg (25.0-34.0); Mean Corpuscular Volume 87.6 fL (80.0-100.0); Platelet Count 123 K/uL (130-400); RDW Standard Deviation 41.9 fL (36.4-46.3); Red Blood Count 4.61 M/uL (4.20-5.40); White Blood Count 11.60 K/ul (4.8-10.8)
[2025-06-24] MEDS ORDERED: NALOXONE HCL 0.4 MG/1 ML VIAL/CARP IV PRN (17:42)
[2025-06-24] MEDS ORDERED: ONDANSETRON INJ 2 MG/ML 2 ML VIAL IV PRN (17:42)
[2025-06-24] MEDS ORDERED: BUPIVACAINE 0.25% PF 30 ML VIAL EPI PRN (17:42)
[2025-06-24] MEDS ORDERED: LIDOCAINE 2% MPF LOCAL 5 ML VIAL EPI PRN (17:42)
[2025-06-24] MEDS ORDERED: NALBUPHINE HCL INJ 10 MG/ML AMP IV PRN (17:42)
[2025-06-24] MEDS ORDERED: NALOXONE HCL 1 MG in SODIUM CHLORIDE 0.9% 1,000 ML IV PRN (17:42)
[2025-06-24] MEDS ORDERED: diphenhydrAMINE 50 MG/ML VIAL IV PRN (17:42)
[2025-06-24] MEDS ORDERED: ROPIVACAINE 0.5% PF 5 MG/ML 20 ML VIAL EPI PRN (17:42)
[2025-06-24] MEDS ORDERED: SODIUM CHLORIDE 0.9% PF INJ 10 ML VIAL EPI PRN (17:42)
--- NOTE | 2025-06-24 17:45 | Anesthesiology Consultation ---
Date of Service June 24, 2025 Assessment & Plan (1) Encounter for pre-operative examination: Chart Review Chart Review: Patient NOT seen in Pre Admission Testing and Acceptable Risk for Labor Epidural Consults Requested none History Height/Weight Height: 5 ft 4 in Weight: 118.388 kg Allergies Allergy/AdvReac Type Severity Reaction Status Date / Time No Known Allergies Allergy Verified 12/03/24 12:54 Medications Home Medications Medication Instructions Recorded Confirmed Last Taken vits no.124-ferrous fum 1 tab PO DAILY 05/14/25 06/24/25 05/13/25 27 mg iron-folic acid 800 mcg tablet ( Vitamin) Active Medications Generic Name Dose Route Start Last Admin Trade Name Freq PRN Reason Stop Dose Admin Lactated Ringer's 1,000 mls @ 125 mls/hr 06/24/25 11:09 06/24/25 18:00 Lr IV 06/26/25 11:08 999 mls/hr .Q8H PRN Administration L&D Protocol Protocol Past Medical History Medical History Obesity affecting in third trimester, antepartum Varicosities of leg Right leg Miscarriage Thrombocytopenia with first History of toxoplasmosis with first - 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 Spontaneous vaginal delivery 04/23/2018 [facility] Sinusitis with nasal polyps Past Family History Family History Other No pertinent family history Past Surgical History Surgical History H/O sinus surgery No pertinent past surgical history Social History Smoking Status: Never smoker Hx Alcohol Use: No Hx Substance Use: No substance use type: does not use Physical Exam Vital Signs Last Vital Signs Temp 37.1 C 06/24/25 10:56 Pulse 93 H 06/24/25 18:30 Resp 18 06/24/25 10:56 BP 131/76 06/24/25 18:29 Pulse Ox 97 06/24/25 18:30 Testing Laboratory Results 06/24/25 11:40
[2025-06-24] MEDS: LACTATED RINGER'S 1,000 ML IV PRN (18:00)
--- NOTE | 2025-06-24 18:04 | Obstetrical Progress Note ---
Date of Service June 24, 2025 Assessment & Plan Admission and Anticipated Discharge Date Admission Date: June 24, 2025 Subjective Patient has been ambulating. 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 Patient does not want her membranes ruptured. She desires to be checked to decide for epidural. Cervix is 5 to 6 cm, 90% effaced, head is -1 station with a bulging bag, heart rate category 1, Contractions every 6 to 8 minutes, she desires epidural and then will ask for rupture when her arrives, continue to monitor closely Results & Data Vital Signs (Past 12 Hours) Vital Signs Temp Pulse Resp BP Pulse Ox 06/24/25 18:00 92 H 99 06/24/25 14:57 72 103/63 06/24/25 11:05 81 113/70 06/24/25 10:56 37.1 C 18
[2025-06-24] MEDS: BUPIVACAINE 0.25% PF 30 ML VIAL EPI STA (18:11)
[2025-06-24] MEDS: fentANYL 2 MCG/ML BUPIVacaine 0.125%-NSS 100ML BAG EPI PRN (18:12)
--- NOTE | 2025-06-24 20:03 | Obstetrical Progress Note ---
Date of Service June 24, 2025 Assessment & Plan Admission and Anticipated Discharge Date Admission Date: June 24, 2025 Subjective patient has received epidural, comfortable now. Her is back from home. She desires AROM. Vital signs stable afebrile, heart rate category 1, Cervix is 6 cm, 90% effaced bulging bag, AROM, clear fluid, head is at -1 station sagittal suture is transverse, Contractions spaced out every 4 to 6 minutes, Will augment with low-dose oxytocin per protocol, Continue to monitor closely. Results & Data Vital Signs (Past 12 Hours) Vital Signs Temp Pulse Resp BP Pulse Ox 06/24/25 20:00 89 99 06/24/25 19:58 116 H 93/52 L 06/24/25 19:56 93 H 96/52 L 06/24/25 19:55 95 H 98 06/24/25 19:50 96 H 99 06/24/25 19:48 100 H 88/53 L 06/24/25 19:45 113 H 90/53 L 99 06/24/25 19:40 94 H 99 06/24/25 19:38 93/54 L 06/24/25 19:35 99 H 100 06/24/25 19:33 84 88/51 L 06/24/25 19:30 100 06/24/25 19:30 97 H 06/24/25 19:30 99 H 88/55 L 06/24/25 19:25 96 H 100 06/24/25 19:21 87 93/51 L 06/24/25 19:20 90 100 06/24/25 19:18 96 H 82/46 L 06/24/25 19:15 88 92/63 L 100 06/24/25 19:12 93 H 91/52 L 06/24/25 19:10 95 H 100 06/24/25 19:08 91 H 87/51 L 06/24/25 19:06 84 93/52 L 06/24/25 19:05 83 98 06/24/25 19:04 90 98/53 L 06/24/25 19:02 89 94/53 L 06/24/25 19:00 36.7 C 93 H 98/55 L 100 06/24/25 18:58 79 91/51 L 06/24/25 18:55 74 96/54 L 100 06/24/25 18:53 71 89/51 L 09/03/25 18:52 81 83/44 L 06/24/25 18:50 99 06/24/25 18:50 88 06/24/25 18:50 85 89/51 L 06/24/25 18:48 77 90/52 L 06/24/25 18:47 95 H 90/48 L 06/24/25 18:45 97 06/24/25 18:45 71 06/24/25 18:45 76 85/45 L 06/24/25 18:44 72 79/42 L 06/24/25 18:42 85 96/55 L 06/24/25 18:40 98 06/24/25 18:40 93 H 06/24/25 18:40 93 H 103/59 L 06/24/25 18:38 93 06/24/25 18:38 94 H 06/24/25 18:38 93 H 99/57 L 06/24/25 18:36 93 H 18 97/54 L 06/24/25 18:35 97 06/24/25 18:35 92 H 06/24/25 18:35 86 116/57 L 06/24/25 18:32 18 06/24/25 18:32 18 06/24/25 18:30 93 H 97 06/24/25 18:29 80 131/76 06/24/25 18:25 95 H 98 06/24/25 18:20 92 H 99 06/24/25 18:15 92 H 99 06/24/25 18:10 95 H 100 06/24/25 18:05 87 100 06/24/25 18:00 92 H 99 06/24/25 14:57 72 103/63 06/24/25 11:05 81 113/70 06/24/25 10:56 37.1 C 18
[2025-06-24] MEDS: OXYTOCIN 30 UNITS/NSS 30 UNITS/500 ML BAG IV PRN (20:41)
[2025-06-24] MEDS: METHYLERGONOVINE MALEATE 0.2 MG/ML AMP IM ONE (22:32)
[2025-06-24] MEDS ORDERED: HYDROCORTISONE ACETATE 25 MG SUPP PR PRN (22:35)
[2025-06-24] MEDS ORDERED: MEASLES, MUMPS & RUBELLA VIRUS VACCINE (MMR) 0.5ML VIAL SQ ONE (22:35)
[2025-06-24] MEDS ORDERED: DIPHTHER/TETAN/PERTUS Vaccine (Tdap, Adol/Adult) 0.5mL IM ONE (22:35)
[2025-06-24] MEDS ORDERED: ACETAMINOPHEN 325 MG TAB PO PRN (22:35)
[2025-06-24] MEDS: LIDOCAINE 2%/EPINEPHRINE 1:200,000 20 ML PF EPI STA (22:37)
[2025-06-24] MEDS: ACETAMINOPHEN 325 MG TAB PO PRN (22:45)
--- NOTE | 2025-06-24 22:45 | Delivery Summary ---
Vaginal Delivery Summary Date of Service June 24, 2025 Vaginal Delivery Summary Patient was found to be fully dilated and desired to push. She pushed with 3 contractions and delivered the head and then turtle sign was noted. nuchal cord around the neck x 1 was reduced. Her legs were hyperflexed with Eduardo tremor maneuver, suprapubic pressure was applied by nursing team, then I was able to grasp left shoulder under axillary area and delivered with minimal traction and then the rest of the body came spontaneously. The time between delivery of the head and the whole body was less than a minute. The baby was handed off to the mother. The cord was clampedx2 and cut at 1 minute. The vagina and perineum were checked and found to be intact, no laceration. The placenta was delivered spontaneously as intact and complete The uterus was explored and found to be empty. QBL was 179 ml. The fundus was firm The baby was a viable female infant, Apgars 8/9, the weight is pending The mother and the baby tolerated the procedure well. No complications happened and I was present during whole procedure.
[2025-06-24] MEDS: fentANYL 2 MCG/ML BUPIVacaine 0.125%-NSS 100ML BAG ONE (23:01)
[2025-06-24] MEDS: SODIUM CHLORIDE 0.9% PF INJ 10 ML VIAL ONE (23:01)
[2025-06-24] MEDS: SODIUM CHLORIDE 0.9% PF INJ 10 ML VIAL EPI STA (23:01)
[2025-06-24] MEDS: BUPIVACAINE 0.25% PF 30 ML VIAL ONE (23:01)
[2025-06-24] MEDS: LIDOCAINE 2%/EPINEPHRINE 1:200,000 20 ML PF ONE (23:01)
[2025-06-25] MEDS: IBUPROFEN 600 MG TAB PO PRN (02:53)
--- NOTE | 2025-06-25 07:38 | Anesthesia Procedure Note ---
Date of Service June 25, 2025 Anesthesia Post Epidural Note Vital Signs Vital Signs: Temp Pulse Resp BP Pulse Ox O2 Del Method 36.8 C 84 16 131/83 98 Room Air 06/25/25 04:10 06/25/25 04:10 06/25/25 04:10 06/25/25 04:10 06/25/25 04:06/25/25 04:10 Notes Mental Status: alert / awake / arousable and participated in evaluation Nausea / Vomiting: adequately controlled Pain: adequately controlled Airway Patency, RR, SpO2: stable & adequate BP & HR: stable & adequate Hydration State: stable & adequate Neuraxial Anesthesia: was administered and sensory block is resolving Anesthetic Complications: no major complications apparent Epidural: Removed without complications and With tip intact
[2025-06-25 07:57] LABS: Hematocrit (blood only) 38.1 % (37.0-47.0); Hemoglobin 12.8 g/dl (12.0-16.0); Mean Corpuscular Hemoglobin 29.9 pg (25.0-34.0); Mean Corpuscular Volume 89.0 fL (80.0-100.0); RDW Standard Deviation 43.3 fL (36.4-46.3); Red Blood Count 4.28 M/uL (4.20-5.40); White Blood Count 15.04 K/ul (4.8-10.8)
[2025-06-25] MEDS: BENZOCAINE 20% SPRY 85 APPLN/85 GM CAN EXT PRN (08:27)
[2025-06-25] MEDS: PRENATAL VITAMIN 1 TAB PO SCH (08:27)
[2025-06-25] MEDS: DOCUSATE SODIUM 100 MG CAP PO SCH (08:28)
[2025-06-25] MEDS: FERROUS SULFATE 325 MG TAB PO SCH (08:28)
--- NOTE | 2025-06-25 09:25 | Obstetrical Progress Note ---
Date of Service June 25, 2025 Assessment & Plan Admission and Anticipated Discharge Date Admission Date: June 24, 2025 Subjective abdomen soft and non tender no calf tenderness ambulating well vaginal bleeding scant hgb 12.8 Results & Data Vital Signs (Past 12 Hours) Vital Signs Temp Pulse Pulse Resp BP BP Pulse Ox 06/25/25 07:00 36.6 C 77 18 121/76 99 06/25/25 04:10 36.8 C 84 16 131/83 98 06/25/25 00:31 93 H 105/58 L 06/25/25 00:16 88 103/55 L 06/25/25 00:10 36.6 C 77 18 122/78 98 06/25/25 00:01 90 93/50 L 06/24/25 23:46 87 102/55 L 06/24/25 23:31 88 99/51 L 06/24/25 23:16 92 H 109/57 L 06/24/25 23:01 88 115/58 L 06/24/25 22:47 94 H 109/55 L 06/24/25 22:46 36.9 C 18 06/24/25 22:31 90 116/53 L 06/24/25 22:26 87 108/53 L 06/24/25 22:12 119 H 91 06/24/25 22:11 93 H 135/57 L 06/24/25 22:10 102 H 100 06/24/25 22:05 93 H 100 06/24/25 22:00 106 H 98 06/24/25 21:56 100 H 113/56 L 06/24/25 21:55 102 H 99 06/24/25 21:50 92 H 99 06/24/25 21:45 97 H 97 06/24/25 21:41 89 107/52 L 06/24/25 21:40 94 H 97 06/24/25 21:35 94 H 98 06/24/25 21:30 94 H 97 06/24/25 21:25 95 H 106/65 98 O2 Del Method 06/25/25 07:00 Room Air 06/25/25 04:10 Room Air 06/25/25 00:31 06/25/25 00:16 06/25/25 00:10 Room Air 06/25/25 00:01 06/24/25 23:46 06/24/25 23:31 06/24/25 23:16 06/24/25 23:01 06/24/25 22:47 06/24/25 22:46 06/24/25 22:31 06/24/25 22:26 06/24/25 22:12 06/24/25 22:11 06/24/25 22:10 06/24/25 22:05 06/24/25 22:00 06/24/25 21:56 06/24/25 21:55 06/24/25 21:50 06/24/25 21:45 06/24/25 21:41 06/24/25 21:40 06/24/25 21:35 06/24/25 21:30 06/24/25 21:25
--- NOTE | 2025-06-25 18:24 | Ultrasound Report ---
Technique: Venous ultrasound evaluation was performed utilizing grayscale, color Doppler and wave form evaluation. Images were also obtained with and without compression Findings: There is superficial venous thrombosis in the right popliteal fossa, extending approximately 6 cm in length The bilateral common femoral, superficial femoral, popliteal, and visualized calf veins demonstrate normal anechoic lumens with full compressibility. Normal flow is seen on color Doppler images. Expected waveforms were produced with augmentation maneuvers Impression: 1. No evidence of deep venous thrombosis 2. Superficial venous thrombosis in the right popliteal fossa ACT 112: Positive. There are findings on this exam that require communication between the performing entity and the patient following Patient Test Result Information Act ([place] ACT 112) guidelines. Electronically signed by Alf Carcamo 06-25-2025 6:20 PM
[2025-06-25 20:50] VITALS: O2SAT 98
[2025-06-25 23:48] VITALS: RESP 18
[2025-06-26 07:12] LABS: Hematocrit (blood only) 36.2 % (37.0-47.0); Hemoglobin 12.0 g/dl (12.0-16.0)
[2025-06-26] MEDS: CALCIUM CARBONATE 500 MG CHEWABLE TAB PO PRN (08:44)
[2025-06-26 09:28] VITALS: BP 112/75; PULSE 89; TEMP 98.8
--- NOTE | 2025-06-26 10:35 | Obstetrical Progress Note ---
Date of Service June 26, 2025 Assessment & Plan (1) Normal course: Plan Post day #2 Vaginal delivery Pt doing well No complaints Stable vitals Stable labs. H/H:10/17 Tolerating PO food and med Pt wishes to be discharged home Subjective Ambulation: ambulating normally Voiding: no voiding problems Passing Gas:: Yes Diet Tolerance:: regular diet Lochia:: Small Feeding Type:: breast feeding Review of Systems All systems reviewed & are unremarkable except as noted in HPI & below Physical Exam Constitutional WD/WN, vitals as above well developed and well nourished Eyes PERRL, conjunctivae normal, anicteric sclerae Neck trachea midline, no thyromegaly Respiratory normal respiratory effort, lungs clear to auscultation Auscultation: no crackles, no rales and no wheezes Cardiovascular RRR, no murmur, no edema Gastrointestinal (Abdomen) normal bowel sounds, soft, nontender, no hepatosplenomegaly Uterus is below umbilicus Musculoskeletal no cyanosis or clubbing, extremities motor strength 5/5 Skin no rashes, warm and dry Neurologic patellar DTR's 2+ bilat, sensation intact Psychiatric A+Ox3, euthymic affect Genitourinary normal external appearance Results & Data Vital Signs (Past 12 Hours) Vital Signs Temp Pulse Resp BP Pulse Ox O2 Del Method 06/26/25 08:33 37.1 C 89 18 112/75 98 Room Air 06/25/25 23:00 36.8 C 88 18 118/84 98 Room Air
== END 2025-06-26 12:50 | disposition home or self-care (01) | DRG 807 ==
LOC: OPB 10:45 → 4S1 10:46 → 4E2 06-25 01:02

== ENCOUNTER 2025-07-17 01:20 | Observation (INO) ==
--- NOTE | 2025-07-17 01:37 | Emergency Department Note ---
Impression & Plan Vertigo, Abnormal MRI Admission ED Provider Note HPI: History obtained from patient. The patient is a 34-year-old female who is 3 weeks following a vaginal delivery without complication, who presents to the emergency department with a chief complaint of dizziness. Patient states that this been ongoing for several hours, she states it started last evening at about 9:30 PM when she was in the shower. Patient states that the dizziness seems to have improved from previous, she describes it as a lightheaded sensation as if things are spinning around her. Patient denies any chest pain or shortness of breath. Patient does note that she has a history of a superficial thrombophlebitis for which she is supposed to be taking subcutaneous Lovenox but she has missed several doses recently. On arrival here to the ED the patient is hemodynamically stable, she does not have any focal deficits, she otherwise appears to be in no acute distress on my initial assessment. Blood pressure on arrival is 127/79, patient denies any current headache, she states she did have a mild headache yesterday but it is now resolved. ROS: - Per HPI Differential Diagnosis: Vasovagal event, peripheral vertigo, intracranial mass, intracranial hemorrhage, pulmonary embolism, critical electrolyte abnormalities, dehydration/acute kidney injury, preeclampsia, amongst other potential pathologies. *Outpatient medications and allergy history reviewed. 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 strength, symmetrical facial movements are appreciated, no drift of the upper extremities or lower extremities with testing against gravity Psychiatric: Cooperative INDEPENDENT INTERPRETATIONS: food processor: (As interpreted by myself): - An order was placed for continuous cardiac monitoring - Patient was noted to be in sinus rhythm with a rate of 63 EKG: (As interpreted by myself): Rate: 61 Rhythm: Normal sinus rhythm Intervals: Within normal limits ST changes: No ST elevation Time: 0143 Chest x-ray: (As interpreted by myself): No acute disease Interventions provided in ED: - IV fluid bolus, meclizine Medical Decision Making: IV was established and lab work obtained, patient was placed on line ordering clinician. Lab work shows no leukocytosis, hemoglobin is normal, platelet count is slightly reduced at 116, CMP does not show any evidence of any critical findings. There is no transaminitis, bilirubin is normal, troponin is negative x 1. EKG per my interpretation shows normal sinus rhythm with a rate of 61. Chest x-ray does not show any evidence of acute disease. Given that the patient is with acute episode of dizziness, CT Engerix B of the chest was obtained and there is no evidence of PE. CT imaging of the head was also obtained, this shows evidence of a hypodense area in the right parietal white matter, recommendation was made per the interpreting radiologist to obtain an MRI for further diagnostic benefit. Patient was in agreement to this. MRI imaging of the brain with and without contrast was therefore obtained and shows multiple hyperintense nonenhancing areas concerning for possible demyelinating process per the interpreting radiologist. On my reevaluation the patient states she is feeling improved from previous. She denies any recent paresthesias, denies any recent visual changes, denies any recent urinary symptoms. Patient states she did have a headache yesterday but that resolved today. Given the MRI findings, I did discuss the patient's presentation and imaging results with the on-call [facility] Neurologist, Dr. Iwona Chávez, she requested to evaluate the patient via telemetry consult and therefore this was set up in the patient's room. Following Dr. Chávez's teleneurology consultation, she does recommend the patient receive further MRI imaging as she does have concern for possible reversible cerebral vasoconstriction syndrome. She requested that MRA of the brain as well as MRV of the brain be ordered, given this patient will require admission for further workup. I discussed this with the patient, she is in agreement for admission. Neurology will be on consultation, I then discussed the patient's presentation with the on-call hospitalist, Dr. Hernández, and the patient was placed for admission in stable condition for further care. Of note, the patient appears well on my reassessment, she states that symptomatically she is greatly improved. She denies any paresthesias, denies any visual changes, denies any current headache. Consultants/Discussions held with other healthcare providers: - Neurology, Dr. Chávez ([facility]) - Hospitalist, Dr. Hernández Disposition discussion held by myself with: - Patient Diagnosis: 1. Acute onset dizziness/vertigo 2. Abnormal MRI of the brain, acute 3. Abnormal CT scan of the head, acute 4. status, 3 weeks Disposition: Admission Delfin Vásquez DO Emergency Medicine Past Med/Surg History Problem List (Updated 07/17/25 @ 07:39 by Delfin Vásquez DO) Vertigo (Acute) Abnormal MRI (Acute) Active labor at term with 35 completed weeks gestation Cramping affecting , antepartum Grand multipara in labor in third trimester Back pain affecting in third trimester Superficial thrombophlebitis Normal course History of shoulder dystocia Abdominal pain (Acute) with 41 completed weeks gestation Post-term , 40-42 weeks of gestation Encounter for pre-operative examination Incomplete (Acute) Near syncope (Acute) Medical History Obesity affecting in third trimester, antepartum Varicosities of leg Miscarriage Thrombocytopenia History of toxoplasmosis Spontaneous vaginal delivery Sinusitis with nasal polyps Surgical History H/O sinus surgery No pertinent past surgical history Family History Other No pertinent family history Social History Smoking Status: Never smoker Hx Alcohol Use: No Hx Substance Use: No Preferred Language: Maltese Communication Ability: Effective Business Editor Required: No Beliefs That Will Affect Care: None marital status: Current Living Situation: Spouse and Family Current Living Situation Comment: house with and daughter Feels Safe at Home: Yes Assistive Devices: None Allergies Allergies Allergy/AdvReac Type Severity Reaction Status Date / Time No Known Allergies Allergy Verified 07/17/25 01:53 Home Meds Home Medications Medication Instructions Recorded Confirmed vits [id number] fum 1 tab PO DAILY 05/14/25 07/17/25 27 mg iron-folic acid 800 mcg tablet ( Vitamin) Muringa Suppliment 1 dose PO DIRECTED 07/17/25 07/17/25 Previous Rx's Medication Instructions Recorded enoxaparin 100 mg/mL subcutaneous 100 mg subcut Q12H 10 days #20 mL 06/30/25 syringe (Lovenox) Results & Data (ED) Vital Signs Vital Signs - 24 hr 07/17/25 01:25 07/17/25 01:37 07/17/25 01:48 Temperature 36.7 C Temperature Source Temporal Artery Scan Pulse Rate 60 61 57 L Pulse Rate [Apical] Pulse Rhythm Regular Pulse Rhythm [Apical] Pulse Strength [Apical] Respiratory Rate 17 18 Respiratory Effort / Characteristics Non-Labored Spontaneous Respiratory Depth Normal Respiratory Pattern Regular Blood Pressure 127/79 Blood Pressure [Right Arm] Blood Pressure Mean 95 Blood Pressure Mean [Right Arm] Blood Pressure Position [Right Arm] Pulse Oximetry 99 97 Oxygen Delivery Method Room Air Room Air Sepsis Recent Fever Within 48 Hours No Sepsis New/Unexplained Change in Mental Status N/A Sepsis Action Taken by Nursing No Action Required 07/17/25 03:00 07/17/25 05:00 07/17/25 05:29 Temperature Temperature Source Pulse Rate 54 L Pulse Rate [Apical] 57 L 59 L Pulse Rhythm Pulse Rhythm [Apical] Regular Regular Pulse Strength [Apical] Normal Normal Respiratory Rate 16 16 Respiratory Effort / Characteristics Non-Labored Spontaneous Non-Labored Spontaneous Respiratory Depth Normal Normal Respiratory Pattern Regular Regular Blood Pressure Blood Pressure [Right Arm] 121/67 117/76 Blood Pressure Mean Blood Pressure Mean [Right Arm] 85 89 Blood Pressure Position [Right Arm] Lying Lying Pulse Oximetry 95 97 Oxygen Delivery Method Room Air Room Air Sepsis Recent Fever Within 48 Hours Sepsis New/Unexplained Change in Mental Status Sepsis Action Taken by Nursing 07/17/25 07:00 Temperature Temperature Source Pulse Rate Pulse Rate [Apical] 52 L Pulse Rhythm Pulse Rhythm [Apical] Pulse Strength [Apical] Respiratory Rate 14 Respiratory Effort / Characteristics Non-Labored Spontaneous Respiratory Depth Normal Respiratory Pattern Regular Blood Pressure Blood Pressure [Right Arm] 106/72 Blood Pressure Mean Blood Pressure Mean [Right Arm] 83 Blood Pressure Position [Right Arm] Semi-fowlers Pulse Oximetry 98 Oxygen Delivery Method Room Air Sepsis Recent Fever Within 48 Hours Sepsis New/Unexplained Change in Mental Status Sepsis Action Taken by Nursing Laboratory Data 07/17/25 01:41 07/17/25 01:41 Lab Results 07/17/25 Range/Units 01:41 WBC 6.36 (4.8-10.8) K/ul RBC 4.84 (4.20-5.40) M/uL Hgb 14.0 (12.0-16.0) g/dl Hct 43.0 (37.0-47.0) % MCV 88.8 (80.0-100.0) fL MCH 28.9 (25.0-34.0) pg MCHC 32.6 (32.0-36.0) g/dL RDW Std Deviation 40.5 (36.4-46.3) fL RDW Coeff of Fiorella 12.4 (11.5-14.5) % Plt Count 116 L (130-400) K/uL MPV 12.1 (9.4-12.4) fL Immature Gran % (Auto) 0.3 % Neut % (Auto) 50.0 % Lymph % (Auto) 34.3 % [place] % (Auto) 8.5 % Eos % (Auto) 6.3 % Baso % (Auto) 0.6 % Neut # (Auto) 3.18 (1.40-6.50) K/uL Lymph # (Auto) 2.18 (1.20-3.40) K/uL [place] # (Auto) 0.54 (0.11-0.59) K/uL Eos # (Auto) 0.40 (0.00-0.50) K/uL Baso # (Auto) 0.04 (0.00-0.20) K/uL Immature Gran # (Auto) 0.02 (0.01-0.20) K/uL Platelet Estimate Normal (Normal) PT 10.1 (9.0-12.0) Seconds INR 0.9 (0.9-1.1) Sodium 140 (136-145) mmol/L Potassium 3.7 (3.5-5.1) mmol/L Chloride 107 (98-107) mmol/L Carbon Dioxide 27 (21-32) mmol/L Anion Gap 6 (3-11) BUN 13 (6-23) mg/dl Creatinine 0.97 (0.6-1.2) mg/dl Est Cr Clr Drug Dosing 98.3 ml/min eGFR 78.64 BUN/Creatinine Ratio 13.4 (10-20) Glucose 111 H (70-99(Fasting)) mg/dl Calcium 9.4 (8.6-10.3) mg/dl Total Bilirubin 0.3 (0.2-1.0) mg/dl AST 26 (13-39) U/L ALT 39 (7-52) U/L Alkaline Phosphatase 70 (34-104) U/L Troponin I High Sens 3.6 (0-14) pg/ml Total Protein 6.8 (6.0-8.3) gm/dl Albumin 4.2 (3.4-5.0) gm/dl Globulin 2.6 (2.5-4.0) gm/dl Albumin/Globulin Ratio 1.6 (0.9-2) Lipase 40 (11-82) U/L Administered Medications Discontinued Medications Gadobutrol (Gadobutrol 65ml Vial) 9 ml IV ONCE ONE Stop: 07/17/25 03:56 Last Admin: 07/17/25 03:55 Dose: 9 ml Documented By: HARLAN Sodium Chloride (Nss) 1,000 mls @ 999 mls/hr IV .Q1H1M STA Stop: 07/17/25 02:29 Last Infusion: 07/17/25 02:52 Dose: Infused Documented By: Admin: 07/17/25 01:40 Dose: 999 mls/hr Documented By: REMI Sodium Chloride (Nss) 1,000 mls @ 999 mls/hr IV .Q1H1M ONE Stop: 07/17/25 04:27 Last Infusion: 07/17/25 04:30 Dose: Infused Documented By: Admin: 07/17/25 03:29 Dose: 999 mls/hr Documented By: REMI Ioversol (Optiray 320 125ml) 119 ml IV ONCE ONE Stop: 07/17/25 02:40 Last Admin: 07/17/25 02:40 Dose: 119 ml Documented By: RINKU Meclizine HCl (Meclizine Hcl 25 Mg Tab) 25 mg PO NOW STA Stop: 07/17/25 01:36 Last Admin: 07/17/25 01:39 Dose: 25 mg Documented By: REMI Imaging Data Radiologist's Impression: Chest X-Ray 07/17/25 01:29 EXAM: XR chest 1V portable CLINICAL HISTORY: dizzy TECHNIQUE: A radiograph of the chest was acquired. COMPARISON: None. FINDINGS: The lungs are clear and well-expanded, with no pulmonary infiltrate or pleural effusion. The cardiomediastinal silhouette is within normal limits. There is no acute osseous abnormality. IMPRESSION: 1. No acute cardiopulmonary disease. Electronically signed by Conrado Xiong 07-17-2025 03:[address] 07/17/25 01:30 EXAM: CT head/brain wo con CLINICAL HISTORY: MOSS, dizzy TECHNIQUE: Multiple axial images were obtained from the skull base to the vertex without contrast. CT scan was performed according to ALARA (as low as reasonably achievable). COMPARISON: None. FINDINGS: Focal, ill-defined hypodensity/edema is seen in the right parietal subcortical white matter. The remainder of the brain shows normal morphology, attenuation, and volume for age. No evidence of hemorrhage, mass effect, midline shift, extra-axial collection, or hydrocephalus is noted. Ventricles, sulci, and basal cisterns are symmetric and normal in size and configuration. The elkins-white matter differentiation is preserved. Visualized mastoid air cells are well aerated. Orbital contents are within normal limits. Bony structures are intact. Bilateral ethmoidal and sphenoidal sinusitis. IMPRESSION: 1. Focal, ill-defined hypodensity/edema seen in the right parietal subcortical white matter. Possibility of underlying lesion versus ischemic changes. Suggested contrast MRI brain and clinical correlation. Electronically signed by Conrado Xiong 07-17-2025 03:13 AM Chest CTA 07/17/25 01:35 EXAM: CT angio chest PE protocol CLINICAL HISTORY: PE TECHNIQUE: Contiguous axial images were obtained from the base of the neck through the upper abdomen following intravenous administration of iodinated contrast material. Angiographic images were processed, and 3D MIP images were acquired for interpretation. If intravenous contrast material had not been administered, the likelihood of detecting abnormalities relevant to the patient's condition would have been substantially decreased. Coronal and sagittal 3D MIPs were also performed and indicated to increase the sensitivity in detecting diffuse clinically relevant pathology. The CT scan was performed according to ALARA (as low as reasonably achievable). COMPARISON: None. FINDINGS: There is an adequate contrast bolus without evidence of pulmonary embolism. The central airways are patent. The lungs are clear. There is no pleural effusion. The heart, aorta, and pulmonary arteries are of normal size and configuration. There are no appreciable coronary artery or aortic atherosclerotic calcifications. No pericardial effusion is identified. The thyroid is unremarkable. No mediastinal, hilar, or axillary lymphadenopathy is noted. No suspicious lytic or sclerotic osseous lesions are identified. IMPRESSION: 1. No evidence of pulmonary embolism or pulmonary disease. Electronically signed by Conrado Xiong 07-17-2025 03:48 AM Brain MRI 07/17/25 03:20 EXAM: MR brain wo/w con CLINICAL HISTORY: dizzy, hypodensity R pariental lobe on CT TECHNIQUE: MRI of the brain was performed with and without intravenous contrast administration (specify contrast agent and dosage). Sequences obtained include pre-contrast and post-contrast T1-weighted, T2-weighted, FLAIR (Fluid-Attenuated Inversion Recovery), DWI (Diffusion-Weighted Imaging), and ADC (Apparent Diffusion Coefficient) sequences. COMPARISON: Comparison is made with prior imaging studies dated [MM/DD/] if available. No previous studies are available for comparison. FINDINGS: Brain Parenchyma: Evidence of patchy T2 and FLAIR hyperintensity is noted involving the subcortical white matter of the right parietal lobe and the left posterior temporal and occipital lobes without obvious post-contrast enhancement. There is no diffusion restriction on DWI images. No obvious blooming is noted on the gradient echo images. On post-contrast images, no significant enhancement is noted. There is no evidence of acute infarction or hemorrhage. Elkins-white matter differentiation is preserved. No abnormal signal intensity lesions are identified. Post-Contrast Findings: No abnormal enhancement of the brain parenchyma or meninges. Ventricles and Sulci: The ventricular system is within normal limits without evidence of hydrocephalus. Sulci and cisternal spaces are age-appropriate. Brainstem and Cerebellum: The brainstem and cerebellum demonstrate normal appearance without focal lesions or abnormal enhancement. Vessels: Intracranial vessels appear normal without evidence of vascular malformations or aneurysms. Skull and Calvarium: There is no evidence of skull vault lesions or abnormal marrow signal within the calvarium. IMPRESSION: Evidence of patchy non-enhancing hyperintense areas involving the subcortical white matter of the right parietal lobe and left posterior temporal and occipital lobes as described. Possibility of demyelination is likely. Clinicopathological correlation is suggested. No evidence of acute infarct. Electronically signed by Conrado Xiong 07-17-2025 05:06 AM Discharge Plan Visit Data Chief Complaint: Vertigo Stated Complaint: 3 WKS POST , DIZZY AND HEADACHE ED Provider: Delfin Vásquez Discharge Problem: Vertigo, Abnormal MRI Patient Disposition: Admitted As Inpatient Condition: Fair Forms Stand Alone Forms: [facility] Responsible City Prescriptions Prescriptions: No Action Muringa Suppliment 1 dose PO DIRECTED Vitamin 27 mg iron- 800 mcg Tablet 1 tab PO DAILY enoxaparin [Lovenox] 100 mg/mL syringe 100 mg subcut Q12H 10 Days Qty: 20 1RF Rx Instructions: STARTED 06/30/25 FOR 10 DAYS, PER PT "SKIPPED A FEW DOSES, EXTENDING THE DAYS". Referrals Referrals: Adelia Meng MD [Primary Care Provider] -
[2025-07-17] MEDS: MECLIZINE HCL 25 MG TAB PO STA (01:39)
[2025-07-17] MEDS: SODIUM CHLORIDE 0.9% 1,000 ML IV STA (01:40)
[2025-07-17 02:30] LABS: Alanine Aminotransferase 39 U/L (7-52); Albumin Globulin Ratio 1.6 (0.9-2); Albumin Level 4.2 gm/dl (3.4-5.0); Alkaline Phosphatase 70 U/L (34-104); Anion Gap 6 (3-11); Bilirubin,Total 0.3 mg/dl (0.2-1.0); Blood Urea Nitrogen 13 mg/dl (6-23); Calcium 9.4 mg/dl (8.6-10.3); Carbon Dioxide 27 mmol/L (21-32); Chloride 107 mmol/L (98-107); Creatinine Clr Calc Pharmacy 98.3 ml/min; Globulin 2.6 gm/dl (2.5-4.0); Glucose 111 mg/dl (70-99(Fasting)); Lipase 40 U/L (11-82); Potassium 3.7 mmol/L (3.5-5.1); Sodium 140 mmol/L (136-145); Total Protein 6.8 gm/dl (6.0-8.3)
[2025-07-17] MEDS: OPTIRAY 320 125ml IV ONE (02:40)
[2025-07-17 02:42] LABS: INR 0.9 (0.9-1.1); Prothrombin Time 10.1 Seconds (9.0-12.0)
[2025-07-17 02:45] LABS: Hematocrit (blood only) 43.0 % (37.0-47.0); Hemoglobin 14.0 g/dl (12.0-16.0); Immature Granulocytes # (auto) 0.02 K/uL (0.01-0.20); Immature Granulocytes % (auto) 0.3 %; Mean Corpuscular Hemoglobin 28.9 pg (25.0-34.0); Mean Corpuscular Volume 88.8 fL (80.0-100.0); Platelet Count 116 K/uL (130-400); RDW Standard Deviation 40.5 fL (36.4-46.3); Red Blood Count 4.84 M/uL (4.20-5.40); White Blood Count 6.36 K/ul (4.8-10.8)
--- NOTE | 2025-07-17 03:14 | CT Scan Report ---
EXAM: CT head/brain wo con CLINICAL HISTORY: MOSS, dizzy TECHNIQUE: Multiple axial images were obtained from the skull base to the vertex without contrast. CT scan was performed according to ALARA (as low as reasonably achievable). COMPARISON: None. FINDINGS: Focal, ill-defined hypodensity/edema is seen in the right parietal subcortical white matter. The remainder of the brain shows normal morphology, attenuation, and volume for age. No evidence of hemorrhage, mass effect, midline shift, extra-axial collection, or hydrocephalus is noted. Ventricles, sulci, and basal cisterns are symmetric and normal in size and configuration. The medina-white matter differentiation is preserved. Visualized mastoid air cells are well aerated. Orbital contents are within normal limits. Bony structures are intact. Bilateral ethmoidal and sphenoidal sinusitis. IMPRESSION: 1. Focal, ill-defined hypodensity/edema seen in the right parietal subcortical white matter. Possibility of underlying lesion versus ischemic changes. Suggested contrast MRI brain and clinical correlation. Electronically signed by Conrado Xiong 07-17-2025 03:13 AM
--- NOTE | 2025-07-17 03:17 | XRay Report ---
EXAM: XR chest 1V portable CLINICAL HISTORY: dizzy TECHNIQUE: A radiograph of the chest was acquired. COMPARISON: None. FINDINGS: The lungs are clear and well-expanded, with no pulmonary infiltrate or pleural effusion. The cardiomediastinal silhouette is within normal limits. There is no acute osseous abnormality. IMPRESSION: 1. No acute cardiopulmonary disease. Electronically signed by oCnrado Xiong 07-17-2025 03:16 AM
[2025-07-17] MEDS: SODIUM CHLORIDE 0.9% 1,000 ML IV ONE (03:29)
--- NOTE | 2025-07-17 03:48 | CT Scan Report ---
EXAM: CT angio chest PE protocol CLINICAL HISTORY: PE TECHNIQUE: Contiguous axial images were obtained from the base of the neck through the upper abdomen following intravenous administration of iodinated contrast material. Angiographic images were processed, and 3D MIP images were acquired for interpretation. If intravenous contrast material had not been administered, the likelihood of detecting abnormalities relevant to the patient's condition would have been substantially decreased. Coronal and sagittal 3D MIPs were also performed and indicated to increase the sensitivity in detecting diffuse clinically relevant pathology. The CT scan was performed according to ALARA (as low as reasonably achievable). COMPARISON: None. FINDINGS: There is an adequate contrast bolus without evidence of pulmonary embolism. The central airways are patent. The lungs are clear. There is no pleural effusion. The heart, aorta, and pulmonary arteries are of normal size and configuration. There are no appreciable coronary artery or aortic atherosclerotic calcifications. No pericardial effusion is identified. The thyroid is unremarkable. No mediastinal, hilar, or axillary lymphadenopathy is noted. No suspicious lytic or sclerotic osseous lesions are identified. IMPRESSION: 1. No evidence of pulmonary embolism or pulmonary disease. Electronically signed by Conrado Xiong 07-17-2025 03:48 AM
[2025-07-17] MEDS: GADOBUTROL 65ML VIAL IV ONE (03:55)
--- NOTE | 2025-07-17 05:06 | Magnetic Resonance Report ---
EXAM: MR brain wo/w con CLINICAL HISTORY: dizzy, hypodensity R pariental lobe on CT TECHNIQUE: MRI of the brain was performed with and without intravenous contrast administration (specify contrast agent and dosage). Sequences obtained include pre-contrast and post-contrast T1-weighted, T2-weighted, FLAIR (Fluid-Attenuated Inversion Recovery), DWI (Diffusion-Weighted Imaging), and ADC (Apparent Diffusion Coefficient) sequences. COMPARISON: Comparison is made with prior imaging studies dated [MM/DD/YY] if available. No previous studies are available for comparison. FINDINGS: Brain Parenchyma: Evidence of patchy T2 and FLAIR hyperintensity is noted involving the subcortical white matter of the right parietal lobe and the left posterior temporal and occipital lobes without obvious post-contrast enhancement. There is no diffusion restriction on DWI images. No obvious blooming is noted on the gradient echo images. On post-contrast images, no significant enhancement is noted. There is no evidence of acute infarction or hemorrhage. Elkins-white matter differentiation is preserved. No abnormal signal intensity lesions are identified. Post-Contrast Findings: No abnormal enhancement of the brain parenchyma or meninges. Ventricles and Sulci: The ventricular system is within normal limits without evidence of hydrocephalus. Sulci and cisternal spaces are age-appropriate. Brainstem and Cerebellum: The brainstem and cerebellum demonstrate normal appearance without focal lesions or abnormal enhancement. Vessels: Intracranial vessels appear normal without evidence of vascular malformations or aneurysms. Skull and Calvarium: There is no evidence of skull vault lesions or abnormal marrow signal within the calvarium. IMPRESSION: Evidence of patchy non-enhancing hyperintense areas involving the subcortical white matter of the right parietal lobe and left posterior temporal and occipital lobes as described. Possibility of demyelination is likely. Clinicopathological correlation is suggested. No evidence of acute infarct. Electronically signed by Conrado Xoing 07-17-2025 05:06 AM
--- NOTE | 2025-07-17 06:56 | Neurology Consultation ---
Date of Consultation July 17, 2025 Assessment & Plan (1) Abnormal MRI: The patient's MRI was personally reviewed and shows a fluffy subcortical hyperintensity on T2 FLAIR imaging in the right parietal and left temporal lobes. It is nonenhancing and no correlate on GRE, nonhemorrhagic. There is no DWI hyperintensity or restricted diffusion. It appears to have the appearance of reversible cerebral vasoconstrictive syndrome (RCVS) particularly since the patient is 3 weeks , however the patient does not report thunderclap headache she just had a mild headache. other possibilities include ADEM although this would typically have a more diffuse appearance or PACNS although I believe the patient would look more ill if this was the case. This could also be nonspecific subcortical changes. Demyelinating possibilities include multiple sclerosis or NMO but I not believe this has the classic appearance of multiple sclerosis and she does not have any limb symptoms to necessitate spinal imaging in my opinion. - recommend MRV to rule out CVST given patient's history of DVT, I favor this is less likely as she is taking therapeutic Lovenox - recommend MR angiogram head and neck to rule out are CVS - depending on this imaging would consider lumbar puncture with oligoclonal bands and cell count as well as serum IgG and Aquaphor and 4 antibodies - depending on above workup would consider treatment with methylprednisolone 1000 mg daily x3-5 days, acyclovir, calcium channel rik, and magnesium. At present, patient is asymptomatic but would prefer to prevent further encephalopathy if possible - patient is but steroids could cause low weight prior to - I reviewed the patient's images in [employer] system, no prior MRI for comparison I discussed my recommendations with Dr. Delfin Sunshine in the Emergency Department. Thank you for this consult. Please call with questions. Telehealth Consultation Telehealth Information Telehealth Information: I performed this visit using a real-time telehealth connection between my location and the patients location (). After connecting through interactive tele-video, patient was identified by name and date of and/or wristband check.Patient (or authorized healthcare customer development representative) was informed that this was a telemedicine visit and it was being conducted confidentially over secure lines. My office door was closed and no one else was present in the room with me.Patient (or authorized healthcare customer development representative) provided consent to proceed with the visit, expressed an u nderstanding of privacy and security of the telemedicine visit, and gave permission to have a hospital customer development representative in the room in order to assist with the visit and to conduct portions of the visit, as needed. I informed the patient (or authorized healthcare customer development representative) that I reviewed their record and presented the opportunity for them to ask any questions regarding the visit today. The patient agreed to participate. History of Present Illness Reason for Consultation: abnormal MRI Attending Physician: Dr. Delfin Vásquez History of Present Illness Love Fabian is a 34-year-old female with a past medical history of DVT currently on therapeutic Lovenox, 3 weeks who presents to [facility] Emergency Department with an episode of severe dizziness which started 07/16/2025 at 9:30 p.m.. She woke up at midnight and was still dizzy so she decided to present to the Emergency Department for further evaluation. She reports a minor headache which resolved with ibuprofen. She rated as 2/10 in severity, gradual onset, no thunderclap features, she took ibuprofen and it resolved. She denies any blurred vision, double vision, weakness, numbness, paresthesias, or speech deficits. , she developed a DVT and was started on therapeutic Lovenox but otherwise there were no complications with her or delivery. She reports that she had an uncomplicated vaginal delivery. She did have 1 episode of hypotension per her report with her epidural. She is currently and baby is with her in the Emergency Department. CT head was obtained which showed a right parietal hypodensity an MRI was recommended. MRI brain with and without contrast was obtained which showed a nonenhancing right parietal subcortical FLAIR hyperintensity, moderate size as well as a left temporal FLAIR hyperintensity, somewhat smaller size with concern for demyelinating etiologies. Her clinical exam is reassuring and unremarkable within the limits of she is holding her baby and there is no staff present at bedside to assist with the exam. The patient tells me her dizziness improved with administration of meclizine. Allergies Allergy/AdvReac Type Severity Reaction Status Date / Time No Known Allergies Allergy Verified 07/17/25 01:53 Home Medications Medication Instructions Recorded Confirmed Type vits no.124-ferrous fum 1 tab PO DAILY 05/14/25 07/17/25 History 27 mg iron-folic acid 800 mcg tablet ( Vitamin) enoxaparin 100 mg/mL subcutaneous 100 mg subcut Q12H 10 days #20 mL 06/30/25 07/17/25 Rx syringe (Lovenox) Chance Suppliment 1 dose PO DIRECTED 07/17/25 07/17/25 History Patient History Medical History Obesity affecting in third trimester, antepartum Varicosities of leg Miscarriage Thrombocytopenia History of toxoplasmosis Spontaneous vaginal delivery Sinusitis with nasal polyps Surgical History H/O sinus surgery No pertinent past surgical history Family History Other No pertinent family history Social History Smoking Status: Never smoker Hx Alcohol Use: No Hx Substance Use: No Preferred Language: Sami Communication Ability: Effective Conservation Science Officer 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 Physical Exam Physical Exam: General Appearance: Alert HEENT: anicteric sclera, no scleral injection Lungs: respirations appear comfortable, no obvious increased work of breathing Extremities: No cyanosis or fingernail clubbing Skin: No rashes in exposed skin areas Objective Limited due to Televideo encounter Physical Exam: General Appearance: Alert Neurological Examination: Mental status: Alert and oriented. No dysarthria. Cranial Nerves: Extraocular movements intact and spontaneous. Midline gaze. Face symmetric. Sensory: Normal sensory exam. Motor:Absent pronator drift in all extremities Cerebellar: Rapid alternating movements are intact. Did not perform [id number] as patient is holding her baby Results & Data Vital Signs (Past 12 Hours) Vital Signs Temp Pulse Pulse Resp BP BP Pulse Ox 07/17/25 05:29 54 L 07/17/25 05:00 59 L 16 117/76 97 07/17/25 03:00 57 L 16 121/67 95 07/17/25 01:48 57 L 18 97 07/17/25 01:37 61 07/17/25 01:25 36.7 C 60 17 127/79 99 O2 Del Method 07/17/25 05:29 07/17/25 05:00 Room Air 07/17/25 03:00 Room Air 07/17/25 01:48 Room Air 07/17/25 01:37 07/17/25 01:25 Room Air Laboratory Results 07/17/25 01:41 WBC 6.36 RBC 4.84 Hgb 14.0 Hct 43.0 MCV 88.8 MCH 28.9 MCHC 32.6 RDW Std Deviation 40.5 RDW Coeff of Fiorella 12.4 Plt Count 116 L MPV 12.1 Immature Gran % (Auto) 0.3 Neut % (Auto) 50.0 Lymph % (Auto) 34.3 [place] % (Auto) 8.5 Eos % (Auto) 6.3 Baso % (Auto) 0.6 Neut # (Auto) 3.18 Lymph # (Auto) 2.18 [place] # (Auto) 0.54 Eos # (Auto) 0.40 Baso # (Auto) 0.04 Immature Gran # (Auto) 0.02 Platelet Estimate Normal PT 10.1 INR 0.9 Sodium 140 Potassium 3.7 Chloride 107 Carbon Dioxide 27 Anion Gap 6 BUN 13 Creatinine 0.97 Est Cr Clr Drug Dosing 98.3 eGFR 78.64 BUN/Creatinine Ratio 13.4 Glucose 111 H Calcium 9.4 Total Bilirubin 0.3 AST 26 ALT 39 Alkaline Phosphatase 70 Troponin I High Sens 3.6 Total Protein 6.8 Albumin 4.2 Globulin 2.6 Albumin/Globulin Ratio 1.6 Lipase 40 Diagnostic Findings Chest X-Ray 07/17/25 01:29 EXAM: XR chest 1V portable CLINICAL HISTORY: dizzy TECHNIQUE: A radiograph of the chest was acquired. COMPARISON: None. FINDINGS: The lungs are clear and well-expanded, with no pulmonary infiltrate or pleural effusion. The cardiomediastinal silhouette is within normal limits. There is no acute osseous abnormality. IMPRESSION: 1. No acute cardiopulmonary disease. Electronically signed by Conrado Xiong 07-17-2025 03:[address] 07/17/25 01:30 CLINICAL HISTORY: MOSS, dizzy IMPRESSION: 1. Focal, ill-defined hypodensity/edema seen in the right parietal subcortical white matter. Possibility of underlying lesion versus ischemic changes. Suggested contrast MRI brain and clinical correlation. Electronically signed by Conrado Xiong 07-17-2025 03:13 AM Chest CTA 07/17/25 01:35 CLINICAL HISTORY: DVT IMPRESSION: 1. No evidence of pulmonary embolism or pulmonary disease. Electronically signed by Conrado Xiong 07-17-2025 03:48 AM Brain MRI 07/17/25 03:20 CLINICAL HISTORY: dizzy, hypodensity R pariental lobe on CT FINDINGS: Brain Parenchyma: Evidence of patchy T2 and FLAIR hyperintensity is noted involving the subcortical white matter of the right parietal lobe and the left posterior temporal and occipital lobes without obvious post-contrast enhancement. There is no diffusion restriction on DWI images. No obvious blooming is noted on the gradient echo images. On post-contrast images, no significant enhancement is noted. There is no evidence of acute infarction or hemorrhage. Elkins-white matter differentiation is preserved. No abnormal signal intensity lesions are identified. Post-Contrast Findings: No abnormal enhancement of the brain parenchyma or meninges. Ventricles and Sulci: The ventricular system is within normal limits without evidence of hydrocephalus. Sulci and cisternal spaces are age-appropriate. Brainstem and Cerebellum: The brainstem and cerebellum demonstrate normal appearance without focal lesions or abnormal enhancement. Vessels: Intracranial vessels appear normal without evidence of vascular malformations or aneurysms. Skull and Calvarium: There is no evidence of skull vault lesions or abnormal marrow signal within the calvarium. IMPRESSION: Evidence of patchy non-enhancing hyperintense areas involving the subcortical white matter of the right parietal lobe and left posterior temporal and occipital lobes as described. Possibility of demyelination is likely. Clinicopathological correlation is suggested. Electronically signed by Conrado Xiong 07-17-2025 05:06 AM Medications Administered Home Medications Medication Instructions Recorded Confirmed Last Taken vits no.124-ferrous fum 1 tab PO DAILY 05/14/25 07/17/25 07/16/25 27 mg iron-folic acid 800 mcg tablet ( Vitamin) enoxaparin 100 mg/mL subcutaneous 100 mg subcut Q12H 10 days #20 mL 06/30/25 07/17/25 Unknown syringe (Lovenox) [place] Suppliment 1 dose PO DIRECTED 07/17/25 07/17/25 Unknown
[2025-07-17] MEDS ORDERED: ACETAMINOPHEN 325 MG TAB PO PRN (09:47)
[2025-07-17] MEDS ORDERED: ONDANSETRON INJ 2 MG/ML 2 ML VIAL IV PRN (09:47)
[2025-07-17] MEDS ORDERED: POLYETHYLENE (MIRALAX) 17 GM PACK PO PRN (09:47)
[2025-07-17 10:17] VITALS: RESP 16
[2025-07-17] MEDS: PRENATAL VITAMIN 1 TAB PO SCH (12:12)
[2025-07-17 14:21] VITALS: BP 118/73; PULSE 79; TEMP 98.2; O2SAT 96
--- NOTE | 2025-07-17 16:40 | History & Physical Report ---
Date of Service July 17, 2025 Assessment & Plan (1) Vertigo: (2) Abnormal MRI: (3) Superficial thrombophlebitis: Plan 34 yo female with pmhx of recent deliver 3 weeks ago (no immediate post delivery complications), superficial thrombophlebitis presenting for severe dizziness and headache. #Vertigo of Unknown Etiology #R/o Demyelinating Disease #Post Complication -patient is 3 weeks post , presenting with dizziness and headache with concern for demyelinating syndromes on exam -symptoms have improved, currently asymptomatic -MR brain with evidence of concern for demyelinating disease -differential includes: RCVS, CSVT, PCNS, PRES, ADEM, less likely autoimmune conditions, less likely MS given post period, Plan: -neurology consult, appreciate recs -check ESR, CRP, procal, autoimmune panel to finish metabolic workup -MRV, MR angiogram ordered to rule out above pathologies -patient very eager to leave given in post period, if still asymptomatic when imaging returns will touch base with neurology to see if discharge possible #Superficial Thrombophlebitis -hold lovenox for now given the above I spent a total of 80 minutes in direct patient care, including [id number] time with the patient and/or family, reviewing medical records, ordering and reviewing diagnostic tests, and coordinating care with other healthcare providers. This time includes: history taking, physical examination, medical decision making, counseling, ECG interpretation, imaging interpretation, lab interpretation, orders, and education, excluding time spent in the performance of separately billed services. Admission and Anticipated Discharge Date Admission Date: July 17, 2025 History of Present Illness Chief Complaint: -dizziness, headache Primary Care Provider: Adelia Meng MD 34 yo female with pmhx of recent deliver 3 weeks ago (no immediate post delivery complications), superficial thrombophlebitis presenting for severe dizziness and headache. Patient seen and examined at bedside. Patient doing well today. Symptoms began last night at 9:30 pm, described it world spinning all around her. Went to bed, woke up, still dizzy but with headache as well. Has never happened to her before. Not worst headache of life. All symptoms have resolved per her during evaluation. Fatigue, some nausea, otherwise no other symptoms. baby who is present in room for encounter. Allergies Allergy/AdvReac Type Severity Reaction Status Date / Time No Known Allergies Allergy Verified 07/17/25 01:53 Home Medications Medication Instructions Recorded Confirmed Type vits no.124-ferrous fum 1 tab PO DAILY 05/14/25 07/17/25 History 27 mg iron-folic acid 800 mcg tablet ( Vitamin) enoxaparin 100 mg/mL subcutaneous 100 mg subcut Q12H 10 days #20 mL 06/30/25 07/17/25 Rx syringe (Lovenox) [place] Suppliment 1 dose PO DIRECTED 07/17/25 07/17/25 History Past Med/Surg History Problem List (Updated 07/17/25 @ 07:39 by Delfin Vásquez, DO) Vertigo (Acute) Abnormal MRI (Acute) Active labor at term with 35 completed weeks gestation Cramping affecting , antepartum Grand multipara in labor in third trimester Back pain affecting in third trimester Superficial thrombophlebitis Normal course History of shoulder dystocia Abdominal pain (Acute) with 41 completed weeks gestation Post-term , 40-42 weeks of gestation Encounter for pre-operative examination Incomplete (Acute) Near syncope (Acute) Medical History Obesity affecting in third trimester, antepartum Varicosities of leg Miscarriage Thrombocytopenia History of toxoplasmosis Spontaneous vaginal delivery Sinusitis with nasal polyps Surgical History H/O sinus surgery No pertinent past surgical history Family History Other No pertinent family history Social History Smoking Status: Never smoker Hx Alcohol Use: No Hx Substance Use: No Preferred Language: Beninese Communication Ability: Effective Music 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 External ears normal. No rhinorrhea. Moist mucous membranes. Neck: Supple, full range of motion, no observable masses, No meningeal sign. Lungs: No Respiratory distress. CV: RRR, no edema. Abdomen: Soft, nondistended, No rebound tenderness. MSK: No joint swelling, no redness. Skin: No rashes, petechiae, lesions. Normal color per patient. Neuro: Normal Gait, Grossly intact. Psych: Appropriate for situation. Results & Data Results & Data Vital Signs (Past 12 Hours) Vital Signs Temp Pulse Pulse Resp BP Pulse Ox O2 Del Method 07/17/25 14:21 36.8 C 79 16 118/73 96 Room Air 07/17/25 14:03 71 16 101/72 97 Room Air 07/17/25 10:16 64 16 130/74 95 Room Air 07/17/25 08:46 57 L 14 113/71 96 Room Air 07/17/25 07:00 52 L 14 106/72 98 Room Air 07/17/25 05:29 54 L 07/17/25 05:00 59 L 16 117/76 97 Room Air Laboratory Results -personally reviewed, creatinine at baseline, no leukocytosis Medications Administered Prenat Multivit/Braxton/Iron/Folic Ac ( Vitamin 1 Tab) 1 tab PO DAILY YUMI Stop: 08/16/25 09:46 Last Admin: 07/17/25 12:12 Dose: 1 tab Documented By: REJIE Code Status & VTE Plan Code Status -full code VTE Prophylaxis Plan VTE Prophylaxis will be ordered: Yes
--- NOTE | 2025-07-17 17:50 | Magnetic Resonance Report ---
Clinical history: Headache Technique: Magnetic resonance venography was performed of the brain using [id number] technique. Multiple reconstructions were obtained Findings: There is no definite sign of dural sinus thrombosis. The superior sagittal sinus, inferior sagittal sinus, transverse sinuses, and sigmoid sinuses appear patent. No definite vascular malformation is seen. No other definite abnormality is noted Impression: No definite sign of dural sinus thrombosis Electronically signed by Alf Carcamo 07-17-2025 5:50 PM
--- NOTE | 2025-07-17 17:50 | Magnetic Resonance Report ---
Clinical history: Headache Technique: Magnetic resonance angiography was performed of the [place] using a 3 D time of flight technique. Angiographic reconstructions were obtained Findings: The visualized internal carotid arteries appear unremarkable bilaterally. No definite stenosis or aneurysm is identified of the anterior, middle, or posterior cerebral artery circulations bilaterally. Posterior communicating arteries are present bilaterally The cerebellar arteries are patent. The basilar artery appears unremarkable. No vascular malformation is seen. No other definite abnormality is noted. Impression: Unremarkable MRA of the brain Electronically signed by Alf Carcamo 07-17-2025 5:49 PM
--- NOTE | 2025-07-17 18:09 | Neurology Progress Note ---
Date of Service July 17, 2025 Assessment & Plan (1) Abnormal MRI: Plan I reviewed the MRV which is unremarkable. No sign of CVST. No indication for anticoagulation at this time. I reviewed the MRA angiogram head and neck which is unremarkable. No sign of RCVS. No indication for calcium channel blockers or magnesium at this time. At this point, would recommend a lumbar puncture, however patient would need to remain inpatient until at least Sunday to get this test done. The patient strongly prefers to return home given that she is recently and in order to [place] with her new baby. Her exam remains normal. I do not think the patient's exam is poor enough at this point to merit prophylactic steroid administration or acyclovir. I discussed with the patient's hospitalist. We will attempt to coordinate outpatient lumbar puncture under fluoroscopy on Sunday. Would recommend oligoclonal bands, IgG, cell count, as well as serum anti-MOG and Aquaporin 4 antibodies. Patient was advised to return immediately to the Emergency Department with any confusion, altered mental status, or newly neurologic symptoms including headache, vision loss, language deficits, weakness, numbness, or paresthesias prior to her lumbar puncture appointment. She should follow up with general Neurology clinic at the next available. Subjective Telehealth Information Non-billable encounter, please see plan below Please see plan below Review of Systems Non billable encounter, not reassessed today Physical Exam Non billable encounter, not reassessed today Results & Data Vital Signs (Past 12 Hours) Vital Signs Temp Pulse Resp BP Pulse Ox O2 Del Method 07/17/25 14:21 36.8 C 79 16 118/73 96 Room Air 07/17/25 14:03 71 16 101/72 97 Room Air 07/17/25 10:16 64 16 130/74 95 Room Air 07/17/25 08:46 57 L 14 113/71 96 Room Air 07/17/25 07:00 52 L 14 106/72 98 Room Air Laboratory Results 07/17/25 07/17/25 08:25 01:41 WBC 6.36 RBC 4.84 Hgb 14.0 Hct 43.0 MCV 88.8 MCH 28.9 MCHC 32.6 RDW Std Deviation 40.5 RDW Coeff of Fiorella 12.4 Plt Count 116 L MPV 12.1 Immature Gran % (Auto) 0.3 Neut % (Auto) 50.0 Lymph % (Auto) 34.3 [place] % (Auto) 8.5 Eos % (Auto) 6.3 Baso % (Auto) 0.6 Neut # (Auto) 3.18 Lymph # (Auto) 2.18 [place] # (Auto) 0.54 Eos # (Auto) 0.40 Baso # (Auto) 0.04 Immature Gran # (Auto) 0.02 Platelet Estimate Normal ESR 12 PT 10.1 INR 0.9 Sodium 140 Potassium 3.7 Chloride 107 Carbon Dioxide 27 Anion Gap 6 BUN 13 Creatinine 0.97 Est Cr Clr Drug Dosing 98.3 eGFR 78.64 BUN/Creatinine Ratio 13.4 Glucose 111 H Calcium 9.4 Total Bilirubin 0.3 AST 26 ALT 39 Alkaline Phosphatase 70 Troponin I High Sens 3.6 C-Reactive Protein Cancelled < 0.50 Total Protein 6.8 Albumin 4.2 Globulin 2.6 Albumin/Globulin Ratio 1.6 Lipase 40 Procalcitonin < 0.02 Diagnostic Findings Brain MRI 07/17/25 03:20 CLINICAL HISTORY: dizzy, hypodensity R pariental lobe on CT IMPRESSION: Evidence of patchy non-enhancing hyperintense areas involving the subcortical white matter of the right parietal lobe and left posterior temporal and occipital lobes as described. Possibility of demyelination is likely. Clinicopathological correlation is suggested. No evidence of acute infarct. Electronically signed by Conrado Xiong 07-17-2025 05:06 AM Head MRA 07/17/25 07:21 Clinical history: Headache Impression: Unremarkable MRA of the brain Electronically signed by Alf Carcamo 07-17-2025 5:49 PM Head/Brain Mag Res Venography 07/17/25 07:21 Clinical history: Headache Impression: No definite sign of dural sinus thrombosis Electronically signed by lAf Carcamo 07-17-2025 5:50 PM Medications Administered Home Medications Medication Instructions Recorded Confirmed Last Taken vits no.124-ferrous fum 1 tab PO DAILY 05/14/25 07/17/25 07/16/25 27 mg iron-folic acid 800 mcg tablet ( Vitamin) enoxaparin 100 mg/mL subcutaneous 100 mg subcut Q12H 10 days #20 mL 06/30/25 07/17/25 Unknown syringe (Lovenox) [place] Suppliment 1 dose PO DIRECTED 07/17/25 07/17/25 Unknown Active Medications Generic Name Dose Route Start Last Admin Trade Name Yoanna PRN Reason Stop Dose Admin Prenat Multivit/[place]/Iron/Folic Ac 1 tab 07/17/25 09:47 07/17/25 12:12 Vitamin 1 Tab PO 08/16/25 09:46 1 tab DAILY YUMI Administration
--- NOTE | 2025-07-17 18:35 | Discharge Summary ---
Discharge Summary Date of Service July 17, 2025 Principal Dx & Hospital Course #1 = Principal Diagnosis (1) Vertigo: (2) Abnormal MRI: (3) Superficial thrombophlebitis: Plan 34 yo female with pmhx of recent deliver 3 weeks ago (no immediate post delivery complications), superficial thrombophlebitis presenting for severe dizziness and headache. #Vertigo of Unknown Etiology #R/o Demyelinating Disease #Post Complication -patient is 3 weeks post , presenting with dizziness and headache with concern for demyelinating syndromes on exam -symptoms have improved, currently asymptomatic -MR brain with evidence of concern for demyelinating disease -differential includes: RCVS, CSVT, PCNS, PRES, ADEM, less likely autoimmune conditions, less likely MS given post period, Plan: -neurology consult, appreciate recs -check ESR, CRP, procal, autoimmune panel to finish metabolic workup -MRV, MR angiogram ordered to rule out above pathologies -patient very eager to leave given in post period, if still asymptomatic when imaging returns will touch base with neurology to see if discharge possible #Superficial Thrombophlebitis -hold lovenox for now given the above Notes For Next Care Provider 34 yo female with pmhx of recent deliver 3 weeks ago (no immediate post delivery complications), superficial thrombophlebitis presenting for severe dizziness and headache. MR brain revealing concern for demyelination. Admitted to medicine for further workup. Neurology consulted, recommended MRV and MRA to help rule out clots and other etiologies. Upon review of imaging, neurology recommending lumbar puncture. Patient asymptomatic since arriving to medicine service. Patient would like to go home given recently post and for bonding time with child. Discussed with neurologist and patient, given strict return precautions. If symptoms return, patient will need urgent LP under fluoroscopy given post condition and will need transferred to [facility] given limited IR support/in person neurology support at [facility] during weekends and none during the week. Discussed with Neurology who is in agreement with this. To do: [ ] lumbar puncture outpatient [ ] f/u metabolic workup Medication Changes From Visit -none Admission HPI Per Admitting Provider 34 yo female with pmhx of recent deliver 3 weeks ago (no immediate post delivery complications), superficial thrombophlebitis presenting for severe dizziness and headache. Patient seen and examined at bedside. Patient doing well today. Symptoms began last night at 9:30 pm, described it world spinning all around her. Went to bed, woke up, still dizzy but with headache as well. Has never happened to her before. Not worst headache of life. All symptoms have resolved per her during evaluation. Fatigue, some nausea, otherwise no other symptoms. baby who is present in room for encounter. Discharge Exam Gen: A&O 3 NAD HEENT: NCAT, EOMI, not icteric. External ears normal. No rhinorrhea. Moist mucous membranes. Neck: Supple, full range of motion, no observable masses, No meningeal sign. Lungs: No Respiratory distress. CV: RRR, no edema. Abdomen: Soft, nondistended, No rebound tenderness. MSK: No joint swelling, no redness. Skin: No rashes, petechiae, lesions. Normal color per patient. Neuro: Normal Gait, Grossly intact. Psych: Appropriate for situation. Updated Medication List Medication Instructions Recorded Confirmed Type vits no.[id number]-ferrous fum 1 tab PO DAILY 05/14/25 07/17/25 History 27 mg iron-folic acid 800 mcg tablet ( Vitamin) enoxaparin 100 mg/mL subcutaneous 100 mg subcut Q12H 10 days #20 mL 06/30/25 07/17/25 Rx syringe (Lovenox) [place] Suppliment 1 dose PO DIRECTED 07/17/25 07/17/25 History Hospital Stay Data Consultations 07/17/25 07:20 Consult Neurology Routine 07/17/25 07:33 ED Decision to Admit Stat Diagnostic Imagining Performed 07/17/25 01:30 CT head/brain wo con Stat 07/17/25 01:35 CT angio chest PE protocol Stat 07/17/25 03:20 MRI Brain [MR brain wo/w con] Stat 07/17/25 07:21 MRI Angio Brain [MR angio head wo con] Stat MRI venography head [MR venography head wo con] Stat Pending Results Patient Have Any Pending Studies at Discharge: Yes Discharge Instructions Given to Patient (Per Discharging Provider) Diagnosis: demyelination syndrome of unknown significance Follow Ups: PCP, neurology, IR for lumbar puncture Incidental Findings: sinusitis 1. Please follow up with PCP and neurology. 2. Please get lumbar puncture next week, will order procedure and message team members to help set up. 3. If symptoms return, please go straight to the ED and be transferred to [facility], as we do not have IR support for lumbar puncture on weekends and you will benefit from in person neurologic evaluation. 4. Please stay hydrated! Total Time Total Time Spent Total Time Spent (In Minutes): I spent a total of 45 minutes in direct patient care, including [id number] time with the patient and/or family, reviewing medical records, ordering and reviewing diagnostic tests, and coordinating care with other healthcare providers. This time includes: history taking, physical examination, medical decision making, counseling, ECG interpretation, imaging interpretation, lab interpretation, orders, and education, excluding time spent in the performance of separately billed services.
--- NOTE | 2025-07-18 06:20 | Electrocardiogram Report ---
Test Reason : Blood Pressure : */* mmHG Vent. Rate : 61 BPM Atrial Rate : 61 BPM P-R Int : 136 ms QRS Dur : 104 ms QT Int : 452 ms P-R-T Axes : 49 29 23 degrees QTcB Int : 455 ms Normal sinus rhythm Cannot rule out Anterior infarct , age undetermined Abnormal ECG No previous ECGs available Confirmed by Earl Roberto ([id number]) on 07/18/2025 6:20:00 AM Referred By: REFERRED SELF Confirmed By: Earl Roberto
== END 2025-07-17 19:02 | disposition home or self-care (01) ==
LOC: EDINP 01:20 → ED 01:20 → 3W 14:21